=== PATIENT | female | born 1930 | race Caucasian/White ===

== ENCOUNTER 2016-06-11 14:45 | Emergency (ER) | payer MEDICARE, MEDICAID ==
[~2016-06-11] VITALS: Ht 170.2 cm; Wt 67.0 kg
[~2016-06-11 14:45] MED LIST: HYG25 PO; LACT1CAP44 PO; LISI-567 PO; MAGN800O PO; METO100T3 PO; NA P133E23 RC; OXYC1TAB24 PO; POLY17PO6 PO; SENN-133 PO; TOLT2TAB5 PO; TORS20TA3 PO; WARF5TAB7 PO
[2016-06-11 14:47] VITALS: BP 181/93; PULSE 82; RESP 20; O2SAT 95
[2016-06-11 15:06] VITALS: BP 175/59; PULSE 60; RESP 16; O2SAT 100
--- NOTE | 2016-06-11 15:16 | ED.REPORT ---
HPI-Chest Pain 40 and Over Date of Service Jun 11, 2016 ED Provider: Tariq Kwan DO Patient is an 85 year old female on Warfarin who presents to the ED from Urgent Care to have her pacemaker checked due to SOB that has been worsening this week. Associated symptoms include palpitations, lower extremity edema, and increased frequency of urination with some possible hematuria. She denies fever , cough, vomiting, diarrhea, abdominal pain, or any other symptoms. She had chest pains a few nights ago so she took aspirin and it resolved. Took last antibiotic today for bladder infection (urologist is Dr. Wei) She has an appointment with Dr. Hernandez in a month and a half. She last had her pacemaker checked one month ago. Nursing Notes Stated Complaint: SOB Chief Complaint: Dysrhythmia/Cardiac Nursing Notes Reviewed: Yes Allergies: Coded Allergies: atorvastatin (Verified Allergy, Severe, MUSCLE ACHES, 03/04/15) lovastatin (Verified Allergy, Severe, MUSCLE ACHES, 03/04/15) iodine (Verified Allergy, Mild, STATES BLISTERS INITIALLY THOUGHT TO BE TAPE, 03/04/15) amoxicillin (Verified Allergy, Unknown, 03/04/15) cefuroxime (Verified Allergy, Unknown, 01/06/15) nitrofurantoin (Verified Adverse Reaction, Severe, weakness, 01/06/15) erythromycin ethylsuccinate (Verified Adverse Reaction, Mild, GI UPSET, 01/06/15) sulindac (Verified Adverse Reaction, Mild, GI UPSET, 01/06/15) Uncoded Allergies: TAPE (Allergy, Mild, when in comb with iodine, blisters, 02/01/11) Scheduled Chlorthalidone (Chlorthalidone) 25 Mg Tablet 25 MG PO DAILY Lactobacillus Acidophilus (Acidophilus Lactobacillus) 1 Each Capsule 2 EACH PO BIDWM Lisinopril (Lisinopril) 20 Mg Tablet 40 MG PO DAILY Metoprolol Tartrate (Metoprolol Tartrate) 100 Mg Tablet 150 MG PO BID Tolterodine Tartrate (Tolterodine Tartrate) 2 Mg Tablet 2 MG PO DAILY Torsemide (Torsemide) 20 Mg Tablet 10 MG PO DAILY Warfarin Sodium (Warfarin Sodium) 5 Mg Tablet 5 MG PO DAILY Take 5mg daily on Monday, Monday, Monday, and Monday. Warfarin Sodium (Warfarin Sodium) 5 Mg Tablet 2.5 MG PO DAILY Take 2.5mg (half of a 5mg tablet) on Monday, , and Monday. Scheduled PRN Magnesium Hydroxide (Milk of Magnesia) 10 Ml Conc 10 ML PO HS PRN PRN For Bowel Movement Na Phos,M-B/Na Phos,Di-Ba (Fleet Enema) 133 Ml Enema 133 ML RC DAILY PRN PRN For Constipation Polyethylene Glycol 3350 (Miralax) 17 Gm Powd.pack 17 GM PO DAILY PRN PRN For Constipation Sennosides (Senna) 8.6 Mg Tablet 17.2 MG PO BID PRN PRN For Constipation oxyCODONE-Acetaminophen 5-325 mg (oxyCODONE-Acetaminophen 5-325 mg) 1 Each Tablet 1-2 TAB PO Q4H PRN PRN For Pain General Time Seen by MD: 15:14 Chief Complaint Shortness of breath Hx Obtained From: Patient, Spouse Arrived By: Walk-in Sudden in Onset?: Yes Onset Occurred: 1 week ago Symptom Duration: Since onset Past Medical History Past Medical History Notes: Chronic atrial fibrillation Chronic anticoagulation, on coumadin History of ventricular tachycardia s/p AV node ablation s/p dual chamber permanent pacemaker (VVIR mode) Hypertension Chronic obstructive pulmonary disease Pulmonary hypertension Hypercholesterolemia Gastroesophageal reflux disease Recurrent urinary tract infections Past Medical History Chronic urinary tract infections, pulmonary hypertension, chronic atrial fibrillation on warfarin Osteoporosis Reports: COPD, Congestive heart failure, Hypertension Past Surgical History AV trung ablation and pacemaker implant Two hip replacements cystocele and retrocele repair Family History Reviewed noncontributory Smoking History Former Smoker Social History Alcohol Use: Denies alcohol use Drug Use: Denies drug use Other Social History: Lives alone, Local resident Ambulatory Status Independent Review of Systems Constitutional: Denies: Fever Respiratory: Reports: Shortness of breath, Denies: Non-productive cough Cardiovascular: Reports: Edema, Palpitations GI: Denies: Abdominal pain, Diarrhea, Vomiting Complete sys rev & neg: except as marked. Female: Reports: Hematuria, Urinary frequency Physical Exam Initial Vital Signs Vital Signs (First) Date Time Temp Pulse Resp B/P Pulse Ox O2 Delivery O2 Flow Rate FiO2 06/11/16 14:47 36.6 82 20 181/93 95 Room Air Initial VS: Reviewed Head / Eyes: Atraumatic, Normocephalic Skin: Warm, Dry Neurologic: Alert, Oriented, Nonfocal Psychiatric: Mood/affect normal, Behavior normal, Normal thought content General/Constitutional: Awake, Alert, Well developed Respiratory / Chest: No respiratory distress Faint rhales Cardiovascular: Heart rate NL Lower Ext Edema: Positive: Non-Pitting Abdomen: Soft, Non-tender Neck Vascular: Positive: JVD mild Interpretation & Diagnostics Lab Results Interpretation Result Diagram: 06/11/16 1541 06/11/16 1541 Test 06/11/16 15:41 06/11/16 15:45 White Blood Count 6.9th/mm3 (3.8-10.1) Red Blood Count 4.19mil/mm3 (3.90-5.20) Hemoglobin 12.8g/dL (12.0-15.6) Hematocrit 40.3% (35.0-46.0) Mean Corpuscular Volume 96.2fL (81-100) Mean Corpuscular Hemoglobin 30.5pg (27.0-35.0) Mean Corpuscular Hemoglobin Concent 31.8% (32.0-37.0) Red Cell Distribution Width 14.5% (12.3-15.4) Platelet Count 114bil/L (150-400) Neutrophils (%) (Auto) 79.0% (40-74) Lymphocytes (%) (Auto) 10.9% (14-46) Monocytes (%) (Auto) 9.0% (4-12) Eosinophils (%) (Auto) 0.9% (0-5) Basophils (%) (Auto) 0.1% (0-3) Prothrombin Time 17.7sec (8.1-12.5) Prothromb Time International Ratio 1.64ratio Sodium Level 144mEq/L (134-144) Potassium Level 4.5mEq/L (3.5-5.2) Chloride Level 105mEq/L (97-108) Carbon Dioxide Level 27mmol/L (18-29) Blood Urea Nitrogen 25mg/dL (8-27) Creatinine 1.34mg/dL (0.57-1.00) Estimat Glomerular Filtration Rate 54mL/min (>59) Glucose Level 92mg/dL (60-99) Calcium Level 9.1mg/dL (8.5-10.1) Magnesium Level 2.0mg/dL (1.6-2.6) Total Bilirubin 0.7mg/dL (0.0-1.2) Aspartate Amino Transf (AST/SGOT) 27U/L (0-50) Alanine Aminotransferase (ALT/SGPT) 16U/L (0-32) Alkaline Phosphatase 51U/L (25-165) Troponin T < 0.010ug/L (0.0-0.011) Pro-B-Type Natriuretic Peptide 8267pg/mL (0-738) Total Protein 6.4g/dL (6.4-8.4) Albumin 3.9g/dL (3.4-5.0) Hold Urine Received (Received) ECG Interpretation ECG Interpretation: ventricular-paced rhythm rate 60 Time: 16:23 Interpreted by: ED physician X-Ray Chest Interpretation Chest Xray Interpretation: IMPRESSION: New bilateral pleural effusions suspicious for fluid overload. Cardiomegaly, as before. Dictated by: Destinee Connell M.D. on 06/11/2016 at 15:54 Approved by: Destinee Connell M.D. on 06/11/2016 at 15:55 View: Portable, 1 view Interpretation / Wet Read by: Interpret - Radiologist Re-Eval/Medical Decision Med Decision/Clinical Course Patient presents in fluid overload from congestive heart failure, this is likely to stop her diuretic medications approximately 2 months ago. Pacemaker does not show any aberrancies or runs of ventricular tachycardia however while in the ER she had a run of beats of nonsustained ventricular tachycardia. On questioning she was asymptomatic of this. Her labs are consistent with congestive heart failure next suspect infection, her urinalysis is negative for acute urinary tract infection. The patient is insistent and adamant that she go home. I did contact cardiology and we have discussed the discharge plan. It should be noted that we had a lengthy discussion with the patient and her family member in the room regarding the fact that she had ventricular tachycardia and that sustained could lead to either syncope or cardiac arrest. Her response to this with that she still wished to go home. She seems capable of making her own life decisions and it seems reasonable in this case to let her go home. We will start amlodipine 10 mg and torsemide 10 mg and have her follow-up with cardiology within 1 week. Time of Eval: 17:21 Re-Evaluation/Progress Note: rechecked patient. She didn't know she had a run of unsustained vt. Patient is requesting to go home. Consultation : Referral / Consult Name: Tish Meraz MD Consulted With: Cardiology Call Returned at: 17:55 Note: Discussed patient's case. Give 20 mg furosemide IV again, then start torsemide 10 mg daily and amlodipine 10 mg daily Counseled Regarding: Diagnosis, Lab results, Need for follow-up, When/why to return to ED Discharge & Departure Primary Impression: CHF (congestive heart failure) Additional Impression: Ventricular tachycardia, non-sustained Discharge Condition All VS Reviewed: Yes Condition: Stable Patient Instructions: Congestive Heart Failure (ED) Additional Instructions: Your labs are consistent with congestive heart failure. Begin taking amlodipine 10 mg daily and torsemide 10 mg daily in order to better control your blood pressure and remove extra fluids. Call cardiology Monday morning for an appointment sometime this week. Return to ER if you develop severe shortness of breath, chest pain, or any other concerns. Referrals: Linda Vasques (PCP) Scribe Attestation Portions of this note were transcribed by Kaleb Irene. I, Dr. Kwan personally performed the history, physical exam and medical decision-making; I reviewed and confirmed the accuracy of the information in the transcribed note. Signed by: Kaleb Irene 06/11/16, 8712 copies to: Linda Vasques Timothy S DO Jun 11, 2016 15:16 KALEB IRENE Jun 11, 2016 15:28
[2016-06-11 15:54] LABS: BASOPHILS % (AUTO) 0.1 % (0-3); EOSINOPHILS % (AUTO) 0.9 % (0-5); Mean Corpuscular Hemoglobin 30.5 pg (27.0-35.0); Mean Corpuscular Volume 96.2 fL (81-100); Platelet Count 114 bil/L (150-400)
--- NOTE | 2016-06-11 15:56 | DRSVH ---
PROCEDURE: X-RAY CHEST ONE VIEW, PORTABLE ([id number]) INDICATIONS: dyspnea on exertion TECHNIQUE: One view of the chest was acquired. COMPARISON: [facility], CR, XR CHEST 1VW (PORTABLE), 03/30/2016, 21:10. FINDINGS: Surgical changes and devices: Dual-lead cardiac pacer is unchanged. Lungs and pleura: There are small bilateral pleural effusions which are new when compared with the [facility] dated 03/30/16. The lung volumes are large and the diaphragms are flattened suggesting emphysema. Mediastinum: Mediastinal contours appear normal. Heart size is enlarged, as before. Bones and chest wall: No suspicious bony lesions. Overlying soft tissues appear unremarkable. IMPRESSION: New bilateral pleural effusions suspicious for fluid overload. Cardiomegaly, as before. Dictated by: Destinee Connell M.D. on 06/11/2016 at 15:54 Approved by: Destinee Connell M.D. on 06/11/2016 at 15:55
[2016-06-11 16:09] LABS: INR 1.64 ratio
[2016-06-11 16:55] LABS: TROPONIN T < 0.010 ug/L (0.0-0.011)
[2016-06-11] MEDS ORDERED: Furosemide 10 mg/mL 2 mL Inj IVPUSH ONE ×2 (17:00→18:15)
[2016-06-11 17:25] VITALS: BP 174/61; PULSE 60; RESP 12; O2SAT 100
[2016-06-11] MEDS ORDERED: TORS10TA5 PO (18:16)
[2016-06-11] MEDS ORDERED: AMLO10TA3 PO (18:16)
[2016-06-11 18:41] VITALS: BP 171/75; PULSE 59; O2SAT 96
== END 2016-06-11 18:43 ==
LOC: SED 14:45
DX: I27.2 Other secondary pulmonary hypertension (principal); I50.9 Heart failure, unspecified; I47.2 Ventricular tachycardia; I25.10 Atherosclerotic heart disease of native coronary artery without angina pectoris; K21.9 Gastro-esophageal reflux disease without esophagitis; Z87.440 Personal history of urinary (tract) infections; Z87.891 Personal history of nicotine dependence; Z79.01 Long term (current) use of anticoagulants; Z88.1 Allergy status to other antibiotic agents; Z88.8 Allergy status to other drugs, medicaments and biological substances
CPT/HCPCS: 36415; 71010; 80053; 83735; 83880; 84484; 85025; 85610; 93005; 96374; 96375; 99285; G0463; J1940

== ENCOUNTER 2016-09-28 12:03 | Inpatient (IN) | payer MEDICARE, MEDICAID ==
[~2016-09-28] VITALS: Ht 170.2 cm; Wt 63.6 kg
[2016-09-28 12:03] VITALS: BP 166/67; PULSE 61; RESP 20; O2SAT 98
[~2016-09-28 12:03] MED LIST changes: +AMLO10TA3 PO; +TORS10TA5 PO
--- NOTE | 2016-09-28 13:15 | DRSVH ---
PROCEDURE: X-RAY PELVIS W/LAT HIP (LT) ([id number]) INDICATIONS: pain TECHNIQUE: AP pelvis with lateral view(s) of the left hip(s). COMPARISON: [facility], CT, CT ABD PELVIS WO CON, 03/05/2015, 12:24. FINDINGS: Bones: No fractures or dislocations. Prior bilateral hip arthroplasties. Pelvic ring appears intac t. No suspicious bony lesions. Soft tissues: The visualized bowel gas pattern is normal. No suspicious soft tissue calcifications. Uterine fibroid calcifications to right of midline low pelvis. Aortoiliac endostent placement IMPRESSION: No trauma found. Postsurgical changes as discussed, uterine fibroid calcifications. Dictated by: Cali Avila M.D. on 09/28/2016 at 13:11 Approved by: Cali Avila M.D. on 09/28/2016 at 13:13
--- NOTE | 2016-09-28 14:35 | ED.REPORT ---
HPI-Extremity Problem Lower Date of Service September 28, 2016 ED Provider: Henri Keys PA-C Courtney is a 85-year-old female with history of bilateral hip replacement, A. fib, pacemaker, hypertension presenting with chief complaint of left hip pain. Patient reports that she lost her balance and reached out for a chair, which turned out to be broken. This chair collapsed and she fell to the ground, striking the coffee table. He merely felt left hip pain and fell unable to stand. Denies striking her head, losing consciousness. Denies that the fall was preceded by a sense of presyncope, syncope, chest pain, shortness of breath. Patient reports she has a 40 year history of "bad equilibrium," and a similar fall previously. This has been investigated previously without any etiology determined. Denies numbness in the leg. Nursing Notes Stated Complaint: RIGHT HIP PAIN Chief Complaint: Multiple Trauma/Fall Nursing Notes Reviewed: Yes Allergies: Coded Allergies: atorvastatin (Verified Allergy, Severe, MUSCLE ACHES, 03/04/15) lovastatin (Verified Allergy, Severe, MUSCLE ACHES, 03/04/15) iodine (Verified Allergy, Mild, STATES BLISTERS INITIALLY THOUGHT TO BE TAPE, 03/04/15) amoxicillin (Verified Allergy, Unknown, 03/04/15) cefuroxime (Verified Allergy, Unknown, 01/06/15) nitrofurantoin (Verified Adverse Reaction, Severe, weakness, 01/06/15) erythromycin ethylsuccinate (Verified Adverse Reaction, Mild, GI UPSET, 01/06/15) sulindac (Verified Adverse Reaction, Mild, GI UPSET, 01/06/15) Uncoded Allergies: TAPE (Allergy, Mild, when in comb with iodine, blisters, 02/01/11) Scheduled Amlodipine (Amlodipine) 10 Mg Tablet 10 MG PO DAILY Chlorthalidone (Chlorthalidone) 25 Mg Tablet 25 MG PO DAILY Lactobacillus Acidophilus (Acidophilus Lactobacillus) 1 Each Capsule 2 EACH PO BIDWM Lisinopril (Lisinopril) 20 Mg Tablet 40 MG PO DAILY Metoprolol Tartrate (Metoprolol Tartrate) 100 Mg Tablet 150 MG PO BID Tolterodine Tartrate (Tolterodine Tartrate) 2 Mg Tablet 2 MG PO DAILY Torsemide (Torsemide) 20 Mg Tablet 10 MG PO DAILY Torsemide (Torsemide) 10 Mg Tablet 10 MG PO DAILY Warfarin Sodium (Warfarin Sodium) 5 Mg Tablet 5 MG PO DAILY Take 5mg daily on Monday, Monday, Monday, and Monday. Warfarin Sodium (Warfarin Sodium) 5 Mg Tablet 2.5 MG PO DAILY Take 2.5mg (half of a 5mg tablet) on Monday, , and Monday. Scheduled PRN Magnesium Hydroxide (Milk of Magnesia) 10 Ml Conc 10 ML PO HS PRN PRN For Bowel Movement Na Phos,M-B/Na Phos,Di-Ba (Fleet Enema) 133 Ml Enema 133 ML RC DAILY PRN PRN For Constipation Polyethylene Glycol 3350 (Miralax) 17 Gm Powd.pack 17 GM PO DAILY PRN PRN For Constipation Sennosides (Senna) 8.6 Mg Tablet 17.2 MG PO BID PRN PRN For Constipation oxyCODONE-Acetaminophen 5-325 mg (oxyCODONE-Acetaminophen 5-325 mg) 1 Each Tablet 1-2 TAB PO Q4H PRN PRN For Pain General Time Seen by MD: 14:33 Chief Complaint Hip injury left Past Medical History Past Medical History Notes: Chronic atrial fibrillation Chronic anticoagulation, on coumadin History of ventricular tachycardia s/p AV node ablation s/p dual chamber permanent pacemaker (VVIR mode) Hypertension Chronic obstructive pulmonary disease Pulmonary hypertension Hypercholesterolemia Gastroesophageal reflux disease Recurrent urinary tract infections Past Medical History Chronic urinary tract infections, pulmonary hypertension, chronic atrial fibrillation on warfarin Osteoporosis Reports: COPD, Congestive heart failure, Hypertension Past Surgical History AV trung ablation and pacemaker implant Two hip replacements cystocele and retrocele repair Family History Reviewed noncontributory Smoking History Former Smoker Social History Alcohol Use: Denies alcohol use Drug Use: Denies drug use Other Social History: Lives alone, Local resident Ambulatory Status Independent Review of Systems General: Denies fever, chills, malaise. HEENT: Denies congestion, headache, sore throat. Respiratory: Denies dyspnea, cough, shortness of breath, wheezing. Cardiovascular: Denies chest pain, palpitations. Gastrointestinal: Denies vomiting, diarrhea, abdominal pain. Genitourinary: Denies frequency, urgency, dysuria, hematuria. Otherwise as noted in HPI. Physical Exam General: Well appearing, well developed, well nourished, no acute distress. Left Hip: Normal to inspection, diffusely tender. Limited range of motion Left Knee: Normal to inspection, nontender, full range of motion. Legs: [place] edema bilaterally. DP and PT pulses not appreciated. Feet pink warm and dry with brisk capillary refill. Head: Atraumatic, normocephalic. Eyes: No scleral icterus or injection. No discharge. Vision grossly intact. ENT: Voice clear, hearing grossly intact. Respiratory: Regular rate and rhythm. Breath sounds present, clear to auscultation and equal bilaterally. No respiratory distress. No increased work of breathing, speaks in complete sentences. Cardiovascular: Regular rate and rhythm, without murmur, gallop or rub. No pedal edema. Gastrointestinal: Abdomen flat and non-tender without guarding or rebound. Bowel sounds normoactive. Skin: Warm and dry. Neurological: Grossly nonfocal. Psychological: Alert and oriented. Speech appropriate, linear and logical. Behavior appropriate. Initial Vital Signs Vital Signs (First) Date Time Temp Pulse Resp B/P Pulse Ox O2 Delivery O2 Flow Rate FiO2 09/28/16 12:03 36.4 61 20 166/67 98 Room Air Initial VS: Vital signs normal (elevated blood pressure) Interpretation & Diagnostics Lab Results Interpretation Result Diagram: 09/28/16 1300 09/28/16 1300 Test 09/28/16 13:00 White Blood Count 7.4th/mm3 (3.8-10.1) Red Blood Count 4.51mil/mm3 (3.90-5.20) Hemoglobin 13.6g/dL (12.0-15.6) Hematocrit 42.7% (35.0-46.0) Mean Corpuscular Volume 94.7fL (81-100) Mean Corpuscular Hemoglobin 30.2pg (27.0-35.0) Mean Corpuscular Hemoglobin Concent 31.9% (32.0-37.0) Red Cell Distribution Width 14.9% (12.3-15.4) Platelet Count 129bil/L (150-400) Neutrophils (%) (Auto) 74.1% (40-74) Lymphocytes (%) (Auto) 14.3% (14-46) Monocytes (%) (Auto) 9.4% (4-12) Eosinophils (%) (Auto) 1.5% (0-5) Basophils (%) (Auto) 0.3% (0-3) Hold Purple Top Tube Received (Received) Prothrombin Time 15.4sec (8.1-12.5) Prothromb Time International Ratio 1.43ratio Activated Partial Thromboplast Time 32.1sec (22.8-33.0) Hold Blue Top Tube Received (Received) Sodium Level 143mEq/L (134-144) Potassium Level 4.6mEq/L (3.5-5.2) Chloride Level 104mEq/L (97-108) Carbon Dioxide Level 25mmol/L (18-29) Blood Urea Nitrogen 31mg/dL (8-27) Creatinine 1.76mg/dL (0.57-1.00) Estimat Glomerular Filtration Rate 39mL/min (>59) Glucose Level 91mg/dL (60-99) Calcium Level 10.2mg/dL (8.5-10.1) Total Bilirubin 0.9mg/dL (0.0-1.2) Aspartate Amino Transf (AST/SGOT) 31U/L (0-50) Alanine Aminotransferase (ALT/SGPT) 17U/L (0-32) Alkaline Phosphatase 59U/L (25-165) Total Protein 7.2g/dL (6.4-8.4) Albumin 4.0g/dL (3.4-5.0) Hold Red Top Tube Received (Received) Hold [place] Top Tube Received (Received) X-Ray Interpretation Xray Interpretation: PROCEDURE: X-RAY PELVIS W/LAT HIP (LT) ([id number]) INDICATIONS: pain FINDINGS: Bones: No fractures or dislocations. Prior bilateral hip arthroplasties. Pelvic ring appears intact. No suspicious bony lesions. IMPRESSION: No trauma found. Postsurgical changes as discussed, uterine fibroid calcifications. Interpretation / Wet Read by: Interpret - Radiologist Re-Eval/Medical Decision Med Decision/Clinical Course A 5-year-old female with this history of bilateral total hip duraplasty, A. fib and implanted pacemaker presents with chief complaint of left hip pain after a fall. The patient reports feeling unsteady, grasping for a chair that collapsed causing her to fall to ground. No indication of head or neck trauma. Patient reports long history of "poor equilibrium" I do not find this unusual event. History does not suggest a syncopal event. Exam reveals well perfused leg, good sensation, tender hip. X-rays are normal. This plan with the patient is stable and safe to be discharged, low concern for a cardiac, respiratory or neurological event. However the patient has a great deal of pain is unable to get out of bed. She lives by herself in an apartment that is not wheelchair accessible. Patient failed physical therapy evaluation. States she is not able to return to home in this condition. Discussed the case with social work, and were unable to find options other than admission for observation and pain control. Discussed the case with hospitalist, who accepts admission. Consultation : Referral / Consult Name: Vin Santiago MD Call Returned at: 17:20 Remotely Piloted Vehicle Controller: Accepts admit Discharge & Departure Impression: Primary Impression: Contusion of left hip Encounter type: initial encounter Qualified Code: S70.02XA - Contusion of left hip, initial encounter Disposition: ADMITTED TO HOSPITAL Referrals: Linda Vasques (PCP) Henri Keys PA-C September 28, 2016 14:35
[2016-09-28 14:48] VITALS: BP 122/63; PULSE 60; RESP 20; O2SAT 95
--- NOTE | 2016-09-28 16:00 | NUR ---
Evaluation completed. Please go to "Notes" then click on "Assessments and Notes" (bottom left corner of screen). Then select appropriate discipline tab on top of screen.
--- NOTE | 2016-09-28 16:20 | NUR ---
Admit Pt admitted to floor. Pt transferred to bed via slide board. Pt c/o severe left hip pain with transfer. No pain when she is not moving. A&Ox3. RT called re: stat ECG and labs called re: stat labs. Tele will be obtained and placed on pt. Admission will be completed by oncoming shift. Bed locked in low position and call light within reach. Will continue to monitor.
[2016-09-28 16:46] VITALS: BP 160/69; PULSE 60; O2SAT 99
[2016-09-28 16:50] LABS: BASOPHILS % (AUTO) 0.3 % (0-3); EOSINOPHILS % (AUTO) 1.5 % (0-5); MONOCYTES % (AUTO) 9.4 % (4-12); Mean Corpuscular Hemoglobin 30.2 pg (27.0-35.0); Mean Corpuscular Volume 94.7 fL (81-100); NEUTROPHILS % (AUTO) 74.1 % (40-74); Platelet Count 129 bil/L (150-400)
[2016-09-28] MEDS ORDERED: Ondansetron 2 mg/mL 2 mL Inj IVPUSH PRN (17:55)
[2016-09-28 18:07] VITALS: BP 160/69; PULSE 60; RESP 20; O2SAT 99
[2016-09-28 18:34] VITALS: BP 162/72; PULSE 60; RESP 16; O2SAT 98
[2016-09-28 18:36] LABS: INR 1.43 ratio
[2016-09-28 20:28] LABS: APPEARANCE,URINE HAZY (CLEAR,HAZY); COLOR,URINE YELLOW (YELLOW); OCCULT BLOOD,URINE NEGATIVE (NEGATIVE); UROBILINOGEN,URINE NORMAL (NORMAL)
[2016-09-28] MEDS: Heparin 5,000 Unit/mL Inj SUBQ SCH ×2 (20:28→20:30)
--- NOTE | 2016-09-28 20:30 | PCM.HPMED ---
Subjective Date of Service September 28, 2016 Primary Provider: Admitting Physician: Vin Santiago MD Primary Care Physician: Linda Vasques Attending Physician: Vin Santiago MD Chief Complaint: s/p fall History of Present Illness: 85yo F w/ extensive PMH including chronic afib s/p AV ablation, dual chamber permanent pacemaker anticoagulated with Coumadin, History of ventricular tachycardia., COPD, HTN, HLD, CKD, chronic gait instability, GERD, urinary incontinence with urgency p/w ground level fall. pt reportedly lost balance and reached out to 3leg chair, but it was collapsed so pt landed on the ground, hit coffee table. denied LOC, Patient is poor historian, was not able to explain how she felt exactly at the time of fall, patient stated that she has a equilibrium problem for long time, experienced similar "feeling" every day, regardless of situation, eating or moving or walking, episode is usually mild and everytime it happened, pt had to hang onto something so that she doesn't fall. Today, it was similar to her regular "equilibrium"problem but was not able to rely on something. pt denied particular dizziness but felt that she was unsteady, denied chest pain, sob, palpitation, blurry vision prior to fall. pt is eating okay with good appetite, living alone independently. Pt thought it might be from her taking Codeine for regular pain, but was unclear. pt thinks she took codeine this morning. Pt denied fever, chills. n/v/d, rather constipated, last BM yesterday, has baseline urinary incontinence, taking meds. denied chest pain or palpitation, tinnitus a/w with fall. ED. VS BP 160s, 61, 20, 98% on RA, hip/pelvic xray negative for fx. labs showed CKD, INR1.43, otherwise unremarkable. pt was assessed by PT in ED, was not a condition to go home, recommended admission. Review of Systems: Pertinent positives as noted in history of present illness. All other systems were reviewed and are negative Allergies Coded Allergies: atorvastatin (Verified Allergy, Severe, MUSCLE ACHES, 03/04/15) lovastatin (Verified Allergy, Severe, MUSCLE ACHES, 03/04/15) iodine (Verified Allergy, Mild, STATES BLISTERS INITIALLY THOUGHT TO BE TAPE, 03/04/15) amoxicillin (Verified Allergy, Unknown, 03/04/15) cefuroxime (Verified Allergy, Unknown, 01/06/15) nitrofurantoin (Verified Adverse Reaction, Severe, weakness, 01/06/15) erythromycin ethylsuccinate (Verified Adverse Reaction, Mild, GI UPSET, 01/06/15) sulindac (Verified Adverse Reaction, Mild, GI UPSET, 01/06/15) Uncoded Allergies: TAPE (Allergy, Mild, when in comb with iodine, blisters, 02/01/11) Home Medications will verify later with med rec/EHR, pt cannot recall names PMH PMH Chronic atrial fibrillation s/p AV ablation and dual chamber permanent pacemaker anticoagulated with Coumadin. History of ventricular tachycardia. Nicotine dependence in remission. Abdominal aortic aneurysm, status post aortic stent graft placement for 5.9 cm abdominal aortic aneurysm (2012) Pulmonary hypertension. Chronic obstructive pulmonary disease. Hypertension. Somewhat chronic thrombocytopenia Chronic kidney disease stage III Hypertensive cardiac disease Moderate MR Moderate to severe TR GERD. Hyperlipidemia. Recurrent urinary tract infections, h/o ESBL E. coli. Urinary incontinence with urgency Gait instability, walker at baseline, history of frequent falls Traumatic compression fracture of T9 Gastroesophageal reflux disease. Cholelithiasis. Colonic diverticulosis. Calcified uterine fibroid by CT on 01/25/14. Surgical History AV trung ablation and pacemaker implant. B/l Total Hip Replacement. Cystocele and Retrocele repair. AAA repair (2012). Family History Mother with equilibrium issues. Social History Hx Alcohol Use: Yes (occasionally "not when on codiene") Hx Substance Use: No Hx Tobacco Use: No Smoking Status: Former Smoker Exam Vital Signs Vital Sign - Last Date Time Temp Pulse Resp B/P Pulse Ox O2 Delivery O2 Flow Rate FiO2 09/28/16 18:07 60 20 160/69 99 Room Air 09/28/16 12:03 36.4 Exam Overall pt was bit confused, not able to answer questions correctly. AAOx2, responded slowly. no JVD, MMM, no LAD RRR, nl s1, s2 no mrg CTAB, no w,c S,ND,NT,normoactive BS+ warm, no edema, pulses 2/2 intermittent spasm, tenderness on Left hip Lab and Diagnostics Result Diagram: 09/28/16 1300 09/28/16 1300 X-Rays, CTs and MRIs PROCEDURE: X-RAY PELVIS W/LAT HIP (LT) ([id number]) INDICATIONS: pain TECHNIQUE: AP pelvis with lateral view(s) of the left hip(s). COMPARISON: [facility], CT, CT ABD PELVIS WO CON, 03/05/2015, 12: 24. FINDINGS: Bones: No fractures or dislocations. Prior bilateral hip arthroplasties. Pelvic ring appears intact. No suspicious bony lesions. Soft tissues: The visualized bowel gas pattern is normal. No suspicious soft tissue calcifications. Uterine fibroid calcifications to right of midline low pelvis. Aortoiliac endostent placement IMPRESSION: No trauma found. Postsurgical changes as discussed, uterine fibroid calcifications. Dictated by: Cali Avila M.D. on 09/28/2016 at 13:11 Approved by: Cali Avila M.D. on 09/28/2016 at 13:13 Assessment & Plan Acute, active ground level fall, POA, unlikely mechanical, likely due to underlying "disequilibrium" as pt described, given her age. pt doesn't appear to be dry. labs were unremarkable. had PPM checked 2wks ago, no EKG found in ED -telemetry, will get EKG -continue PT -tramadol, tylenol, flexeril prn, will avoid heavy opioid given hx suggested that fall might be induced from codeine she took -will consider stroke w/u CT, MR stroke protocol if any focal deficit noted -UA, UCX -orthostatic v/s Chronic, stable # Chronic atrial fibrillation s/p AV ablation and dual chamber permanent pacemaker anticoagulated with Coumadin -continue outpatient warfarin to be dosed by pharmacy # Hypertension, mildly hypertensive, resume home med #Abdominal aortic aneurysm, status post aortic stent graft placement for 5.9 cm abdominal aortic aneurysm (2012), stable #Pulmonary hypertension, Chronic obstructive pulmonary disease, continue home inhaler #chronic thrombocytopenia, stable, #Chronic kidney disease stage III, stable #GERD, PPI prn #Hyperlipidemia. continue statin #Urinary incontinence with urgency, continue oxybutynin #Traumatic compression fracture of T9 and chronic back pain, will try to avoid opioid for now Cholelithiasis. Colonic diverticulosis. Dispo: Patient is admitted under observation status with expectation that she will be discharged within 24-48 hours, diet:general dvt ppx:systemic AC DNR/DNI Time spent 65min Vin Santiago MD September 28, 2016 18:22
--- NOTE | 2016-09-28 21:16 | NUR ---
ED EXECUTIVE CYBER LEADER note: D/A: Pt presents to the ED after a ground level fall with subsequent hip pain. NO acute injury identified by ED PA, however significant pain has limited her mobility and she is essentially unable to even transfer to commode. PT evaluated pt however she again was unable to even get to bedside to inadequately controlled pain. EXECUTIVE CYBER LEADER met with pt and her family at bedside to discuss options for home health versus observation admission for pain control and re-assessment. Pt has 3 steps into home and no assistance in the home. Pt has kiln worker in the home 5 hours per day, however they do not provide physical or nursing care. As pt cannot ambulate even to transfer to commode it does not appear feasible or safe to discharge pt home with home health and pt is uncomfortable with that decision. EXECUTIVE CYBER LEADER staffed pt with ED PA and decision was made to admit pt for pain control. P: Pt to be admitted for pain control. Pt has chore workers in the home but no additional assistance. Pt family is supportive however unable to manage pt due to her high levels of pain. EXECUTIVE CYBER LEADER to meet with pt to continue to identify discharge needs as her care progresses. Mirta Romano
--- NOTE | 2016-09-28 21:46 | PCM.PHAPRO ---
Progress Date of Service: September 28, 2016 s/p fall Warfarin Management per Pharmacy: Indication: Stroke prophylaxis as patient has atrial fibrillation ([id number]- Vasc = 4) Goal INR: 2-3 Home Dose: 2.5 mg on and 5 mg all other days Age: 85 yo F Labs: Hgb/Hct: 13.6/42.7 Plt: 129 INR: 1.43 Recommendation: Give 2 mg PO x 1 tonight (total of 7 mg today as patient took home dose of 5 mg in AM) Thank You, Maite Negron, Pharm D. Maite Negron September 28, 2016 21:46
[2016-09-28 21:50] VITALS: BP 127/72; PULSE 56; RESP 16; O2SAT 93
[2016-09-28] MEDS ORDERED: OMEP20CA11 PO (22:25)
[2016-09-28] MEDS ORDERED: ALBU8.5H2 INHALATION (22:25)
[2016-09-28] MEDS ORDERED: SENN-133 PO (22:25)
[2016-09-28] MEDS ORDERED: CRAN PO (22:25)
[2016-09-28] MEDS ORDERED: TOLT2CAP8 PO (22:25)
[2016-09-28] MEDS ORDERED: MAGN400O4 PO (22:25)
[2016-09-28] MEDS ORDERED: IPRA15SP NS (22:25)
[2016-09-28] MEDS ORDERED: DENO60DI SQ (22:27)
[2016-09-28] MEDS ORDERED: CYA1000I IM (22:27)
[2016-09-28] MEDS ORDERED: DEXT1DRO8 BOTH_EYES (22:27)
[2016-09-28] MEDS ORDERED: NAPR250T PO (22:27)
[2016-09-29] VITALS (10 sets, daily range): BP systolic 143–168; BP diastolic 60–80; PULSE 60–65; RESP 14–24; O2SAT 95–100
--- NOTE | 2016-09-29 03:48 | NUR ---
JOSE Pt admitted with JOSE score of 3. Put on cpox. Noted before oxygen placed, pt would drop as low as 78% momentarily, but mostly O2 hung out between 85-91%. 2L NC placed on pt, O2 goal of 88-92% per h/o COPD. Continuing care.
[2016-09-29 07:31] LABS: INR 1.66 ratio
--- NOTE | 2016-09-29 09:03 | NUR ---
Case Management: DICKEY and Medicare Part D given and explained to patient at bedside at 0855. No questions at this time. Signed original placed on hard chart; copy provided to ptSILVIA Arauz RN
[2016-09-29] MEDS: Polyethylene Glycol (PEG) 17 Gm Powder PO SCH (09:31)
[2016-09-29] MEDS: Heparin 5,000 Unit/mL Inj SUBQ SCH ×2 (09:31→20:15)
--- NOTE | 2016-09-29 11:12 | PCM.PHAPRO ---
Progress s/p fall Date August 29-Sep INR 1.43 1.66 INR change 0.23 Warf Dose 7 MG(2 + 5 (HOME)) 5 Pro Mercado Pharm.D Sep 29, 2016 11:12
--- NOTE | 2016-09-29 12:28 | PCM.PNMED ---
Subjective Date of Service Sep 29, 2016 Subjective pt still very weak, slow to answers, EKG showed V-paced rhythms still has episodic spasm, pain on hip pt was gurgling with upper respiratory secretions, stated that this is typical in the morning, denied cough, sputum, SOB Exam Vital Signs Vital Sign - Last Date Time Temp Pulse Resp B/P Pulse Ox O2 Delivery O2 Flow Rate FiO2 09/29/16 10:10 36.7 60 24 144/62 96 Nasal Cannula 1.00 Intake and Output 09/28/16 09/28/16 09/29/16 Cumulative From/Thru 15:00 23:00 07:00 09/28/16 12:03 - 09/29/16 05:11 Intake Total 270 ml 270 ml Output Total 100 ml 100 ml Balance 170 ml 170 ml Intake Oral 240 ml 240 ml IV Total 30 ml 30 ml Output Urine Total 100 ml 100 ml Exam Overall pt was bit confused, not able to answer questions correctly. AAOx2, responded slowly. no JVD, MMM, no LAD RRR, nl s1, s2 no mrg CTAB, no w,c S,ND,NT,normoactive BS+ warm, no edema, pulses 2/2 intermittent spasm, tenderness on Left hip IVs and Medications Medications Reviewed: Medications were reviewed in detail Lab and Diagnostics Result Diagram: 09/28/16 1300 09/28/16 1300 X-Rays, CTs and MRIs PROCEDURE: X-RAY PELVIS W/LAT HIP (LT) ([id number]) INDICATIONS: pain TECHNIQUE: AP pelvis with lateral view(s) of the left hip(s). COMPARISON: [facility], CT, CT ABD PELVIS WO CON, 03/05/2015, 12: 24. FINDINGS: Bones: No fractures or dislocations. Prior bilateral hip arthroplasties. Pelvic ring appears intact. No suspicious bony lesions. Soft tissues: The visualized bowel gas pattern is normal. No suspicious soft tissue calcifications. Uterine fibroid calcifications to right of midline low pelvis. Aortoiliac endostent placement IMPRESSION: No trauma found. Postsurgical changes as discussed, uterine fibroid calcifications. Dictated by: Cali Avila M.D. on 09/28/2016 at 13:11 Approved by: Cali Avila M.D. on 09/28/2016 at 13:13 Assessment & Plan Acute, active ground level fall, POA, unlikely mechanical, likely due to underlying "disequilibrium" as pt described, given her age. pt doesn't appear to be dry. labs were unremarkable. had PPM checked 2wks ago, EKG showed V-paced. -continue telemetry, would not check PPM at this point. -continue PT -tramadol, tylenol, flexeril prn, will avoid heavy opioid given hx suggested that fall might be induced from codeine she took -will consider stroke w/u CTH, MR stroke protocol if any focal deficit noted -UA, UCX -orthostatic v/s Chronic, stable # Chronic atrial fibrillation s/p AV ablation and dual chamber permanent pacemaker anticoagulated with Coumadin -continue outpatient warfarin to be dosed by pharmacy # Hypertension, mildly hypertensive, resume home med #Abdominal aortic aneurysm, status post aortic stent graft placement for 5.9 cm abdominal aortic aneurysm (2012), stable #Pulmonary hypertension, Chronic obstructive pulmonary disease, continue home inhaler #chronic thrombocytopenia, stable, #Chronic kidney disease stage III, stable #GERD, PPI prn #Hyperlipidemia. continue statin #Urinary incontinence with urgency, continue oxybutynin #Traumatic compression fracture of T9 and chronic back pain, will try to avoid opioid for now Cholelithiasis. Colonic diverticulosis. Dispo:continue pain control, likely tomorrow. diet:general dvt ppx:systemic AC DNR/DNI Time spent 35min Vin Santiago MD Sep 29, 2016 12:28
--- NOTE | 2016-09-29 12:34 | NUR ---
Social Work Note - Initial Assessment Courtney Lucio is a 85 yr old admitted for hip Contusion/ pain after a fall at home. EMR reviewed: Pt has Medicare and [facility] insurance. Her PCP is Linda KIRK. SENDY is her son - paperwork in EMR. No LTC or VA benefits. See attached CM initial assessment. MEDICAL APPLIANCE MAKER met with pt - introduced D/C planning and explained SW role. Pt lives at home alone in [place]. She has inhome caregivers daily through [employer] for 5 hours per day. KIRAN Perez. MEDICAL APPLIANCE MAKER asked DRIVER'S LICENSE REVIEWING OFFICER to fax clinicals to KIRAN. She states that she hopes to go home at d/c - PT evaluation pending. She has used [facility] in the past and would like to use them again. ordered HH - MEDICAL APPLIANCE MAKER provided access to [facility] and called [facility]. MEDICAL APPLIANCE MAKER will fax preliminary info to [facility] and MD will complete F2F. Pt states that her friend will transport her home when d/c and she states she will be able to get into her home. MEDICAL APPLIANCE MAKER will continue to follow. Assessment: Pt who was admitted for observation after a fall at home - PT evaluation pending. Pt is not able to pay out of pocket for SNF - would benefit from assistance. Plan: Home with [facility] RN PT BA, KIRAN caregiver to provide transportation home. CLIFFORD Guzman Addendum: 09/29/16 at 1245 by GUILLE HALE SS Amended: Links added.
--- NOTE | 2016-09-29 14:40 | NUR ---
Faxed clinicals to [facility] CM per 1ST GRADE TEACHER
--- NOTE | 2016-09-29 18:41 | NUR ---
Somnolence Pt. was very somnolent this morning and into the afternoon. [place] she was awoken with conversation, she would be AOX3, but then sometimes zone out mid sentence and fall asleep. She was not able to independently stay awake to eat her meals. I had to encourage her several times to eat and drink. I held her scheduled toradol and cyclobenzaprine, and she perked up in the afternoon. She was able to independently eat a snack and dinner, and has been more alert.
[2016-09-30] VITALS (7 sets, daily range): BP systolic 119–193; BP diastolic 58–79; PULSE 60–69; RESP 15–20; O2SAT 92–100
--- NOTE | 2016-09-30 01:05 | NUR ---
TELE At 0045, physical science technician called to report 26 beats of vtach. Pt was asymptomatic, VSS, was up on the bedpan. Dr. Duke notified. Continuing care.
--- NOTE | 2016-09-30 04:30 | NUR ---
BP BP at 0430 was 193/77. Pt appears to be in a high amount of pain AEB grimacing, clutching, bracing, vocal complaints. Paged Dr. Duke. Awaiting reply.
[2016-09-30 06:50] LABS: INR 1.85 ratio
[2016-09-30 07:25] LABS: BASOPHILS % (AUTO) 0.2 % (0-3); EOSINOPHILS % (AUTO) 2.1 % (0-5); MONOCYTES % (AUTO) 13.7 % (4-12); Mean Corpuscular Hemoglobin 30.1 pg (27.0-35.0); Mean Corpuscular Volume 96.1 fL (81-100); NEUTROPHILS % (AUTO) 74.7 % (40-74); Platelet Count 104 bil/L (150-400)
[2016-09-30 07:36] LABS: Magnesium 1.9 mg/dL (1.6-2.6); Phosphorus 3.7 mg/dL (2.5-4.9)
[2016-09-30] MEDS: Polyethylene Glycol (PEG) 17 Gm Powder PO SCH (08:05)
[2016-09-30] MEDS: Heparin 5,000 Unit/mL Inj SUBQ SCH ×2 (08:05→20:20)
[2016-09-30] MEDS: Pantoprazole 40 mg ER24 Tablet PO SCH (08:06)
--- NOTE | 2016-09-30 09:20 | NUR ---
Elevated systolic BP 170/78, pulse 65. Dr. linda aware and no new orders received. patient is asymptomatic. Provided copy of Vtach 20 beats strips from library monitor printed per hospitalist orders. new orders cardiology consult. current Tele vpaced S64. Hospitalist aware. c/o pain hip pain, scheduled Tylenol given as ordered with effective results, patient is able to use bed castellon.
--- NOTE | 2016-09-30 10:44 | PCM.PHAPRO ---
Progress Date of Service: Sep 30, 2016 Requesting Provider: Vin Santiago MD s/p fall A. FIB A/ - Day 3 inpatient for ground level fall - 85 y/o female patient with hx of hypertension, chronic kidney disease stage III, atrial fibrillation on warfarin 2.5mg on and 5mg all other days; seemed like patient is not medication compliance day 08/29 09/29 09/30 INR 1.43 1.66 1.85 Warfarin 5mg+2mg 5mg 5mg - Heparin 5000u sq q12h - Hct/Plt: 39.2/104 - Last 24 hrs, patient is still complaining of hip pain that might explains her elevated blood pressure and Vtach; cardiology consult is ordered, however, consumed 75% - 100% meals, minimal ambulation due to pain, no sight/symptoms of bleeding/bruises. P/ - Give warfarin 5mg today and re-assess tomorrow. INR ordered until 10/03 Pharmacy will monitor daily Thank you James Graff Sep 30, 2016 10:44
--- NOTE | 2016-09-30 13:04 | PCM.PNMED ---
Subjective Date of Service Sep 30, 2016 Subjective pt was not spastic today, had episode of NSVT x2, 26beats, 7beats resumed BB from overnight consulted cardiology Exam Vital Signs Vital Sign - Last Date Time Temp Pulse Resp B/P Pulse Ox O2 Delivery O2 Flow Rate FiO2 09/30/16 11:27 37.0 65 16 119/67 92 Room Air 09/30/16 08:01 1.00 Intake and Output 09/29/16 09/29/16 09/30/16 Cumulative From/Thru 15:00 23:00 07:00 09/28/16 12:03 - 09/30/16 05:09 Intake Total 560 ml 150 ml 980 ml Output Total 600 ml 350 ml 1050 ml Balance -40 ml -200 ml -70 ml Intake Oral 540 ml 120 ml 900 ml IV Total 20 ml 30 ml 80 ml Output Urine Total 600 ml 350 ml 1050 ml # Voids 1 1 # Bowel Movements 0 0 Exam Overall pt was bit confused, not able to answer questions correctly. AAOx2, responded slowly but improved from yesterday no JVD, MMM, no LAD RRR, nl s1, s2 no mrg CTAB, no w,c S,ND,NT,normoactive BS+ warm, no edema, pulses 2/2 IVs and Medications Medications Reviewed: Medications were reviewed in detail Lab and Diagnostics Result Diagram: 09/30/16 0608 09/30/16 0608 X-Rays, CTs and MRIs PROCEDURE: X-RAY PELVIS W/LAT HIP (LT) ([id number]) INDICATIONS: pain TECHNIQUE: AP pelvis with lateral view(s) of the left hip(s). COMPARISON: [facility], CT, CT ABD PELVIS WO CON, 03/05/2015, 12: 24. FINDINGS: Bones: No fractures or dislocations. Prior bilateral hip arthroplasties. Pelvic ring appears intact. No suspicious bony lesions. Soft tissues: The visualized bowel gas pattern is normal. No suspicious soft tissue calcifications. Uterine fibroid calcifications to right of midline low pelvis. Aortoiliac endostent placement IMPRESSION: No trauma found. Postsurgical changes as discussed, uterine fibroid calcifications. Dictated by: Cali Avila M.D. on 09/28/2016 at 13:11 Approved by: Cali Avila M.D. on 09/28/2016 at 13:13 Assessment & Plan Acute, active ground level fall, POA, unlikely mechanical, initially thought to be underlying "disequilibrium" as pt described, given her age, probable ventricular arrhythmia -continue telemetry, -continue PT -tramadol, tylenol, flexeril prn, will avoid heavy opioid given hx suggested that fall might be induced from codeine she took -orthostatic v/s # Chronic atrial fibrillation s/p AV ablation and dual chamber permanent pacemaker anticoagulated with Coumadin. EKG showed V-paced. Telemetry showed multiple episode of NSVT, might be contributing her presentation, although pt was off on BB -continue outpatient warfarin to be dosed by pharmacy -appreciate , for further recs -continue home BB for now # Hypertension, uncontrolled, 170-190s, resolving with home BB Chronic, stable #Abdominal aortic aneurysm, status post aortic stent graft placement for 5.9 cm abdominal aortic aneurysm (2012), stable #Pulmonary hypertension, Chronic obstructive pulmonary disease, continue home inhaler #chronic thrombocytopenia, stable, #Chronic kidney disease stage III, stable #GERD, PPI prn #Hyperlipidemia. continue statin #Urinary incontinence with urgency, continue oxybutynin #Traumatic compression fracture of T9 and chronic back pain, will try to avoid opioid for now Cholelithiasis. Colonic diverticulosis. Dispo:pending given cardiac eval diet:general dvt ppx:systemic AC, keep HSQ until INR>2 DNR/DNI Time spent 35min Vin Santiago MD Sep 30, 2016 13:04
--- NOTE | 2016-09-30 15:05 | CONS ---
[address] [address] CONSULTATION REPORT PATIENT: SHAY DOAN : 1930 MR#: [id number] ADMIT: 09/28/2016 JOB ID: [id number] CARDIOLOGY CONSULTATION: DATE OF SERVICE: 09/30/2016 CHIEF COMPLAINT: I was asked by hospital team to consult on this patient given a history of atrial fibrillation with pacemaker placement, but also status post a recent fall and findings of isolated episodes of nonsustained VT. HISTORY OF PRESENT ILLNESS: This patient is an 85-year-old woman who has a history of chronic atrial fibrillation. Per records has a history of AV node ablation with a generator upgrade and pacer lead placement in 2012. She is chronically paced. Apparently she also has a history of ventricular tachycardia, COPD, hypertension and chronic kidney disease. She had a history of problems with equilibrium issues and she often feels somewhat unsteady on her feet. However prior to this admission, she knew she was going to go down and feels that she tripped on something but did go down and injured her knee and her hip as well. She does not recall feeling any chest pain, palpitations. She does not believe she blacked out. She was taking codeine for pain and not sure if she took that on the morning of the event. She is also on metoprolol on a regular basis for treatment of her hypertension and it is not clear that she was taking that either. She was admitted and placed on telemetry. Metoprolol was initially held given concerns that she might have had relative hypotension, and during the period where she was off metoprolol, she had some episodes of nonsustained VT which were not symptomatic. Now she is back on her metoprolol with blood pressures which are trending in a more normal direction. In speaking to her today, she denies any chest pain, shortness of breath. She has not been up. She is getting up with assistance. She has some discomfort and therefore cannot get up by herself. She is also complaining of the need to use the restroom. She denies any problems with orthopnea, PND. PAST MEDICAL HISTORY/PROBLEM LIST: 1. History of atrial fibrillation with history of AV node ablation and pacer placement. She is on warfarin. Per record, she has history of ventricular tachycardia. 2. History of abdominal aortic aneurysm, repaired with stent graft placement in 2012. 3. COPD. 4. Pulmonary hypertension possibly related to the COPD. 5. Hypertension. 6. Chronic kidney disease. 7. Pacer placement as noted. CURRENT MEDICATIONS: Include: 1. Pantoprazole 40 daily. 2. Torsemide 10 daily. 3. Subcu heparin. 4. Colace. 5. Metoprolol 100 b.i.d. (this was her home dose and was held at the time of admission). 6. Tramadol q.6 h. p.r.n. 7. Warfarin. 8. Zofran p.r.n. ALLERGIES: Are multiple and include: 1. LIPITOR. 2. LOVASTATIN. 3. IODINE., 4. AMOXICILLIN. 5. CEFUROXIME. 6. NITROFURANTOIN. 7. ERYTHROMYCIN. 8. SULINDAC. SOCIAL HISTORY: Former tobacco use. Occasional alcohol use. FAMILY HISTORY: No early coronary disease. REVIEW OF SYSTEMS: Overall health: Denies fevers, chills, weight loss. GI: No problems with blood in her stool. : No dysuria, hematuria. Pulmonary: Denies any increased shortness of breath but does have lung disease. Cardiac: No chest pain, no palpitations. All other per HPI. Musculoskeletal: Some discomfort in her knee and hip, difficulty getting out of bed by herself. Endocrine: No heat or cold intolerance. Heme: No easy bruising or bleeding. ENT: No sore throat. Difficulty swallowing. Ophtho: No vision changes. Neuro: No speech changes. Psych: No acute issues. All other 12 point review of systems are negative. PHYSICAL EXAMINATION: Blood pressure is 170/78. She is afebrile. Heart rate 65. Sats are 94% on 1 L. General: Appearing somewhat confused speaking to me trying to recall the events. Head and neck exam: Normocephalic, atraumatic. Neck: I do not appreciate carotid bruits. Some distention of the external jugular vein noted on the right side. Heart exam: Regular rate. I do not appreciate murmurs on this exam although somewhat difficult exam. Lungs sound clear anteriorly. Abdomen is soft, nontender. Back: No CVA tenderness to palpation. Extremities: Warm. No appreciable edema. Gait is not tested. Neuro: Somewhat confused but alert and interactive. Oropharynx: Mucous membranes moist. Skin: No obvious breakdown appreciated. Psych: appropriate mood and affect. Optho: vision grossly intact LABORATORY DATA: White count 8.4, H and H 12.3 and 39.2, platelets of 104,000, which apparently is somewhat chronic. Chemistry shows sodium 139, potassium 4.1, chloride and bicarb 102 and 22, respectively. BUN and creatinine 31 and 1.49. Her creatinine has actually improved a bit since admission. Troponin not elevated. ProBNP at 80-67. DIAGNOSTIC DATA: Last echocardiogram was performed in 2015 that showed EF about 55% to 60% with synchronous pattern. Right ventricle is felt to be mildly dilated. Systolic function was normal. Pulmonary hypertension was described as severe with an estimated RV systolic pressure 75 mm. Right atrial pressure was elevated. Both atria were severely dilated. Moderate mitral regurgitation. Moderate to severe tricuspid regurgitation. IMAGING: A chest x-ray showed new bilateral pleural effusions. There is fluid overload, cardiomegaly. Hip and pelvis showed no trauma, post surgical changes. IMPRESSION: This patient is a woman who has a history of atrial fibrillation with apparent atrioventricular node ablation. Pacer placement. Looks like the last upgraded generator was in 2012. She apparently has somewhat chronic problems with equilibrium. She thinks she tripped, but she did fall and fortunately did not cause any fractures but has injured her knee and her hip. She does not recall any palpitations. Does not recall any chest pain or other concerning symptoms prior to her fall. She did have some nonsustained VT which did not appear to be symptomatic. She was off her metoprolol at the time and per records it says that she does have some history of ventricular tachycardia. PLAN: 1. I think getting the pacer interrogated would be helpful. 2. Repeat echocardiogram just to make sure there has been no change in her pulmonary pressures. 3. Will continue to monitor to see if there are any arrhythmias or other concerning findings now that she is back on her metoprolol and will follow her blood pressure and make sure that this is better. Will also have to see how she does with physical therapy when she gets up and walks around to see if she is having any recurrent dizziness. This will allow us to better assess if there are any cardiac causes for this. I spent 45 minutes reviewing the old records, reviewing the pacer interrogation , reviewing telemetry, speaking with the patient and examining her. RAMSES
--- NOTE | 2016-09-30 15:24 | NUR ---
Grounds And Nursery Specialist Grounds And Nursery Specialist at bed side this shift. new orders for Echocardiogram. Addendum: 09/30/16 at 1526 by GALLITO BERMUDEZ RN Amended: Links added.
--- NOTE | 2016-09-30 17:07 | NUR ---
Attempted to choice pt for SNF. Pt getting sonogram. CYNDEE Fragoso
--- NOTE | 2016-09-30 17:22 | DRSVH ---
[facility] [address] [place] [address] Echocardiogram Report Name: SHAY DOAN Date: 09/30/2016 Height: 67 in Hospital Exam Location: [facility] Weight: 140 lb Gender: Female BSA: 1.7 m2 : 1930 Age: 85 yrs BP: 170/78 mmHg Reason For Study: Near Syncope Ordering Physician: Performed By: Flores Parker Interpretation Summary 1. Normal left ventricular size, wall thickness and systolic function. 2. Mildly dilated right ventricle with normal systolic function. The estimated RVSP is 55 mm Hg. 3. At least moderate tricuspid regurgitation into a dilated right atrium. Compared to the previous study, the estimated RVSP is somewhat less. The mitral regurgitation does not appear as significant. Procedure: A two-dimensional transthoracic echocardiogram with color flow and Doppler was performed. The study quality was technically adequate. Comparison is made with the echocardiogram of 03/15/2016. The patient has a paced rhythm. Left Ventricle: The left ventricle is normal in size. There is normal left ventricular wall thickness. Left ventricular systolic function is normal. There are no obvious focal wall motion abnormalities noted but poor endocardial definition reduces the sensitivity for the detection of such. Right Ventricle: There is a pacemaker lead in the right ventricle. The ventricle appears at least mildly dilated. The right ventricular systolic function is normal. Atria: Both atria are severely dilated. There is no Doppler evidence for an interatrial shunt. Mitral Valve: The mitral valve leaflets appear mildly thickened, but open well. There is mild to moderate mitral regurgitation. Aortic Valve: The aortic valve is trileaflet. The aortic valve opens well. The aortic valve is slightly calcified. There is trace aortic regurgitation. Tricuspid Valve: The tricuspid valve leaflets are thin and pliable. There is moderate tricuspid regurgitation. The right ventricular systolic pressure is estimated at 55 mmHg assuming a right atrial pressure of 15 mm Hg. Pulmonic Valve: The pulmonic valve leaflets are thin and pliable; valve motion is normal. There is mild pulmonic regurgitation. Great Vessels: The aortic root is normal size. The ascending aorta is at the upper limits of normal in size. The IVC is dilated (diameter is greater than 2.1 cm) and it collapses less than 50% with a sniff. This suggests a high right atrial pressure of 15 mm Hg. Pericardium/ Pleura There is no pericardial effusion. MMode/2D Measurements & Calculations LVIDd: 5.4 cm RA long axis LVOT diam LVIDs: 3.4 cm LA A2 area: 27.3 cm FS: 38.1 % LA A4 area: 29.4 cm RA area Ao root diam EPSS: 0.68 cm LA length (vol): 7.0 cm IVSd: 1.0 cm LA vol: 96.5 ml : 34.0 cm Aortic Jxn LVPWd: 0.56 cm LA vol index RA vol : 138.ml asc Aorta RA Diam: 3.3 cm IVC diam: 2.5 cm : 79.9 mm2 LV daniel. diameter/BSA LV sys. diameter/BSA RVD1 (basal) TAPSE: 2.1 cm (cm/m^2): 3.1 (cm/m^2): 1.9 Doppler Measurements & Calculations Ao V2 max MV E max leonard Med Peak E' Leonard TR max leonard : 121.2 cm/sec : 120.1 cm/sec : 317.9 cm/sec Ao max PG MV P1/2t: 46.9 msecE/E' med: 18.4 TR max PG : 5.9 mmHg MR ERO: 0.19 cm2 Lat Peak E' Leonard : 40.4 mmHg Ao mean PG PA V2 max E/E' lat: 10.2 : 79.2 cm/sec LVOT Max Leonard E/e' average: 14.3 PA mean PG : 92.7 cm/sec LEENA(I,D): 1.8 cm PA Accel Time sev ratio : 0.07 sec MV dec time MV P1/2t max leonard Ao V2 mean LV V1 max PG : 0.12 sec : 77.7 cm/sec Ao V2 VTI: 24.8 cm LV V1 VTI MVA(P1/2t): 4.7 cm2 : 18.5 cm LEENA(V,D): 1.8 cm2 MR flow rate PA V2 mean LEENA indexed to BSA : 100.0 cm3/sec : 53.7 cm/sec (cm^2/m^2): 1.0 MR PISA radius Reading Physician:05:21 PM
--- NOTE | 2016-09-30 17:27 | NUR ---
Elevated SBP BP 183/79, pulse 69. per Tele 100% Vpaced, 60 beats. patient is asymptomatic. Dmitry paged hospitalist and awaiting call back.
--- NOTE | 2016-09-30 17:46 | NUR ---
Metoprolol Hospitalist orders to give Metoprolol PO 100 mg early. Given as ordered.
[2016-10-01] VITALS (7 sets, daily range): BP systolic 140–167; BP diastolic 61–73; PULSE 60–65; RESP 16–18; O2SAT 95–96
[2016-10-01] MEDS: Pantoprazole 40 mg ER24 Tablet PO SCH (06:13)
--- NOTE | 2016-10-01 06:34 | NUR ---
Pain Pt states pain is zero most of the time if she lies still. Pt states some spasms at rest. Pt turns in bed poorly due to pain which is 10/10 when turning.
[2016-10-01 06:51] LABS: BASOPHILS % (AUTO) 0.2 % (0-3); EOSINOPHILS % (AUTO) 1.8 % (0-5); MONOCYTES % (AUTO) 13.5 % (4-12); Mean Corpuscular Hemoglobin 30.5 pg (27.0-35.0); Mean Corpuscular Volume 95.5 fL (81-100); NEUTROPHILS % (AUTO) 73.4 % (40-74); Platelet Count 99 bil/L (150-400)
[2016-10-01 07:08] LABS: INR 2.22 ratio
[2016-10-01 07:22] LABS: Magnesium 1.9 mg/dL (1.6-2.6); Phosphorus 3.6 mg/dL (2.5-4.9)
[2016-10-01] MEDS: Polyethylene Glycol (PEG) 17 Gm Powder PO SCH (08:05)
--- NOTE | 2016-10-01 08:37 | PCM.PHAPRO ---
Progress s/p fall 1-Jeremi 2-Jeremi 3-Jeremi 1.66 1.85 2.22 0.23 0.19 0.37 5 5 2.5 Pro Mercado Pharm.D Oct 01, 2016 08:36
--- NOTE | 2016-10-01 11:06 | NUR ---
Case Management- IMM explained and signed by patient. Copy given to patient and orginal placed in chart. Skye Boykin RN/UR
--- NOTE | 2016-10-01 12:21 | PCM.PNMED ---
Subjective Date of Service Oct 01, 2016 Subjective pt was very confused, didn't answer questions appropriately, still has intermittent spasm reported difficulty of swallowing, awaits swallow eval no episode reported on telemetry Exam Vital Signs Vital Sign - Last Date Time Temp Pulse Resp B/P Pulse Ox O2 Delivery O2 Flow Rate FiO2 10/01/16 10:06 63 10/01/16 07:45 36.9 18 167/71 95 Nasal Cannula 1.00 Intake and Output 09/30/16 09/30/16 10/01/16 Cumulative From/Thru 15:00 23:00 07:00 09/28/16 12:03 - 10/01/16 06:28 Intake Total 474 ml 260 ml 1714 ml Output Total 200 ml 1250 ml Balance 274 ml 260 ml 464 ml Intake Oral 474 ml 250 ml 1624 ml IV Total 0 ml 10 ml 90 ml Output Urine Total 200 ml 1250 ml # Voids 3 1 5 # Bowel Movements 0 0 Exam Overall pt was bit confused, not able to answer questions correctly. AAOx2, no JVD, MMM, no LAD RRR, nl s1, s2 no mrg CTAB, no w,c S,ND,NT,normoactive BS+ warm, no edema, pulses 2/2 IVs and Medications Medications Reviewed: Medications were reviewed in detail Lab and Diagnostics Result Diagram: 10/01/1662910/01/16 0630 X-Rays, CTs and MRIs PROCEDURE: X-RAY PELVIS W/LAT HIP (LT) ([id number]) INDICATIONS: pain TECHNIQUE: AP pelvis with lateral view(s) of the left hip(s). COMPARISON: [facility], CT, CT ABD PELVIS WO CON, 03/05/2015, 12: 24. FINDINGS: Bones: No fractures or dislocations. Prior bilateral hip arthroplasties. Pelvic ring appears intact. No suspicious bony lesions. Soft tissues: The visualized bowel gas pattern is normal. No suspicious soft tissue calcifications. Uterine fibroid calcifications to right of midline low pelvis. Aortoiliac endostent placement IMPRESSION: No trauma found. Postsurgical changes as discussed, uterine fibroid calcifications. Dictated by: Cali Avila M.D. on 09/28/2016 at 13:11 Approved by: Cali Avila M.D. on 09/28/2016 at 13:13 Assessment & Plan Acute, active ground level fall, POA, unlikely mechanical, initially thought to be underlying "disequilibrium" as pt described, given her age, probable ventricular arrhythmia -continue telemetry, -continue PT -tramadol, tylenol prn, will avoid heavy opioid given hx suggested that fall might be induced from codeine she took -will avoid flexeril prn as much as possible given confusion -orthostatic v/s # Chronic atrial fibrillation s/p AV ablation and dual chamber permanent pacemaker anticoagulated with Coumadin. EKG showed V-paced. Telemetry showed multiple episode of NSVT, likely due to BB being held. TTE 09/30 unremarkable -continue outpatient warfarin to be dosed by pharmacy -appreciate , for further recs, -continue home BB for now # Hypertension, uncontrolled, 170-190s, resolving with home BB #acute encephalopathy, POA, likely delirium given age, acute fall, underlying cognitive dysfunction, wax and wane, -aggressive reorientation, avoid sedatives and anticholinergics -given recent fall, will get CTH, -UA, PVR check #reported Chronic, stable #Abdominal aortic aneurysm, status post aortic stent graft placement for 5.9 cm abdominal aortic aneurysm (2012), stable #Pulmonary hypertension, Chronic obstructive pulmonary disease, continue home inhaler #chronic thrombocytopenia, stable, #Chronic kidney disease stage III, stable #GERD, PPI prn #Hyperlipidemia. continue statin #Urinary incontinence with urgency, continue oxybutynin #Traumatic compression fracture of T9 and chronic back pain, will try to avoid opioid for now Cholelithiasis. Colonic diverticulosis. Dispo:likely 1-2days, SNF diet:mechanical dysphagia, awaits s/s eval dvt ppx:systemic AC DNR/DNI Time spent 35min Vin Santiago MD Oct 01, 2016 12:21
--- NOTE | 2016-10-01 12:47 | DRSVH ---
PROCEDURE: CT BRAIN WITHOUT CONTRAST ([id number]) INDICATIONS: recent fall confusion TECHNIQUE: Noncontrast 4.5 mm thick angled axial sections acquired from the foramen magnum to the vertex, with c oronal reformats. COMPARISON: [facility], CT, CT BRAIN WO CON, 03/30/2016, 15:52. [facility], CT, CT BRAIN WO CON, 01/06/2015, 2:44. [facility], CT, CT BRAIN WO CON, 12/26/2014, 20:42 . FINDINGS: Image quality: Excellent. CSF spaces: Basal cisterns are patent. No extra-axial fluid collections. The ventricles are symmet jan in size and shape. Brain: No intracranial bleeds or masses. There is cerebral volume loss for age, with resultant vent ricular and sulcal prominence. There are periventricular and deep white matter chronic small vessel ischemic changes. There is intracranial internal carotid artery atherosclerosis. Skull and face: Calvarium and visualized facial bones appear intact, without suspicious lesions. Sinuses: Visualized sinuses and mastoids are clear. IMPRESSION: No acute intracranial disease process. Dictated by: Elo Soria MD, PhD on 10/01/2016 at 12:44 Approved by: Elo Soria MD, PhD on 10/01/2016 at 12:46
--- NOTE | 2016-10-01 14:30 | NUR ---
Social Work Note: Continued Discharge Planning Data& Assessment: SW attempted to meet with pt at bedside to discuss discharge planning and present SNF list for preferences per MD order. Pt was very confused and talking about adoption, her son being very young and did not seem to be oriented to place or time. RN and MD aware. YARELY attempted to call pt son Rayshawn ([phone]) twice but the phone continuously rang and did not provide the opportunity to leave a voicemail. SW also left a voicemail for pt friend Tete ([phone]) who per RN, is pt caregiver as well. SW to continue to contact pt family and supports to discuss discharge planning and follow for pt mentation improvement. SW to continue to follow. Plan: Anticipated discharge to SNF when medically ready. SW to follow up with pt and pt family regarding SNF list and preferences when appropriate. SW to continue to follow. CYNDEE Salinas
--- NOTE | 2016-10-01 18:18 | NUR ---
Confusion Pt. at the beginning of this shift has been confused and is still confused by the end of this shift. Pt. states seeing people in the corner of her room who are not there. Pt. is able to state her name and place only. She had trouble swallowing her medications this morning and I gave them in apple sauce and Pt. was able to swallow them. Pt. at times got agitated and stated "I cannot trust anyone". For dinner Pt. was seen trying to take a bite out of her call light, I came in and reorientated Pt. to dinner tray with utensils in hand. Per NOC report and PT report this morning, Pt. has seen increased confusion, MD was made aware this morning and he recommended to hold off on pain medications. Will continue to monitor.
--- NOTE | 2016-10-01 20:00 | NUR ---
Confusion Son called and talked with pt. Son then called unit about his moms confusion. Son reports confusion has been related to UTIs in the past.
[2016-10-02] VITALS (8 sets, daily range): BP systolic 129–186; BP diastolic 58–74; PULSE 60–82; RESP 16; O2SAT 94–97
--- NOTE | 2016-10-02 02:42 | NUR ---
Took patient wallet and credit cards and cheekbook and her money and put it in the hospital safe.
[2016-10-02 07:32] LABS: INR 2.68 ratio
[2016-10-02] MEDS: Pantoprazole 40 mg ER24 Tablet PO SCH (07:47)
[2016-10-02] MEDS: Polyethylene Glycol (PEG) 17 Gm Powder PO SCH (07:47)
[2016-10-02 08:03] LABS: BASOPHILS % (AUTO) 0.4 % (0-3); EOSINOPHILS % (AUTO) 0.7 % (0-5); MONOCYTES % (AUTO) 12.6 % (4-12); Mean Corpuscular Hemoglobin 30.2 pg (27.0-35.0); Mean Corpuscular Volume 92.4 fL (81-100); NEUTROPHILS % (AUTO) 77.4 % (40-74); Platelet Count 125 bil/L (150-400)
--- NOTE | 2016-10-02 09:28 | PCM.PHAPRO ---
Progress s/p fall RTM van RTM RTM 1-Jeremi 2-Jeremi 3-Jeremi 4-Jeremi 1.66 1.85 2.22 2.68 0.23 0.19 0.37 0.46 5 5 2.5 1 Pro Mercado Pharm.D Oct 02, 2016 09:28
--- NOTE | 2016-10-02 09:39 | NUR ---
Bladder scan Paged Dr Santiago about bladder scan for pt. Dr Santiago instructed no straight cath unless result is over 250ml. Result of 201ml. pagejuvencio with result. Addendum: 10/02/16 at 1246 by JASMIN FLAHERTY RN Confusion Pt continues to be confused throughout shift. Asking for items that are not there, and seeing things that aren't there. Caregiver Tete stopped in, pt was sleeping. Pt incontinent of urine, bladder scanned post void result 198ml. Will page to ask for straight cath order.
--- NOTE | 2016-10-02 11:07 | NUR ---
Evaluation completed. Please go to "Notes" then click on "Assessments and Notes" (bottom left corner of screen). Then select appropriate discipline tab on top of screen. Addendum: 10/02/16 at 1212 by RL ALAMO The patient did not demonstrate any signs or symptoms of aspiration during bedside swallow eval. Recommending dysphagia mechanical textures d/t esophageal dysmotility, with thin liquids. If the MD suspects aspiration, then it is recommended that a modified barium swallow study be ordered. ST will sign off at this time unless an MBSS is ordered, as the pt appears to be safely tolerating her least restrictive diet level.
--- NOTE | 2016-10-02 11:17 | NUR ---
Social Work Note: Continued Discharge Planning Data& Assessment: YARELY received order from to arranged SNF placement for rehab. SW attempted to meet with pt at bedside to discuss SNF preferences. Pt is still confused and not at her baseline mentation at this time. YARELY left SNF list at pt bedside and contacted pt son Rayshawn ([phone]) who explained that pt confusion is usually associated with a UTI, MD aware. Pt son states pt has been to [facility] in the past and that would be his first preference. Keeping pt in the [facility] is a priority and so if [facility] is unable to accept pt, then [facility] would be the second preference. YARELY inquired about pt caregiver/friend Tete ([phone]) who has been seen at pt beside. Pt son confirmed that Tete aids pt with transportation, meals and chores 4 days a week, is able to be involved in pt care or if staff has any other questions regarding pt baseline, Tete would be able to answer those questions appropriately. Pt son denies any other needs at this time. YARELY spoke with Natali from [facility] for SNF referral who agreed to review pt for potential acceptance, access provided. All updated and agreeable to plan. SW to continue to follow. Plan: Anticipated discharge to [facility] when medically ready pending acceptance. All updated and agreeable to plan. YARELY to continue to follow. CYNDEE Salinas
--- NOTE | 2016-10-02 12:01 | PCM.PNMED ---
Subjective Date of Service Oct 02, 2016 Subjective pt remained confused, clinically stable not retaining urine, no dysuria still has intermittent cramps on Left hip area BP uncontrolled 160-170s pt thinks she is at home, although remembered her fall as per caregiver yesterday this is different her baseline Exam Vital Signs Vital Sign - Last Date Time Temp Pulse Resp B/P Pulse Ox O2 Delivery O2 Flow Rate FiO2 10/02/16 09:58 60 10/02/16 09:52 Supplement Oxygen 10/02/16 08:55 36.6 16 186/74 97 1.00 Intake and Output 10/01/16 10/01/16 10/02/16 Cumulative From/Thru 15:00 23:00 07:00 09/28/16 12:03 - 10/02/16 05:27 Intake Total 110 ml 1824 ml Output Total 1250 ml Balance 110 ml 574 ml Intake Oral 100 ml 1724 ml IV Total 10 ml 100 ml Output Urine Total 1250 ml # Voids 1 6 # Bowel Movements 0 Exam calm, only oriented to name no JVD, MMM, no LAD RRR, nl s1, s2 no mrg CTAB, no w,c S,ND,NT,normoactive BS+ warm, no edema, pulses 2/2 neuro: CN2-12 grossly intact, IVs and Medications Medications Reviewed: Medications were reviewed in detail Lab and Diagnostics Result Diagram: 10/02/16 0600 10/01/16 0630 X-Rays, CTs and MRIs PROCEDURE: X-RAY PELVIS W/LAT HIP (LT) ([id number]) INDICATIONS: pain TECHNIQUE: AP pelvis with lateral view(s) of the left hip(s). COMPARISON: [facility], CT, CT ABD PELVIS WO CON, 03/05/2015, 12: 24. FINDINGS: Bones: No fractures or dislocations. Prior bilateral hip arthroplasties. Pelvic ring appears intact. No suspicious bony lesions. Soft tissues: The visualized bowel gas pattern is normal. No suspicious soft tissue calcifications. Uterine fibroid calcifications to right of midline low pelvis. Aortoiliac endostent placement IMPRESSION: No trauma found. Postsurgical changes as discussed, uterine fibroid calcifications. Dictated by: Cali Avila M.D. on 09/28/2016 at 13:11 Approved by: Cali Avila M.D. on 09/28/2016 at 13:13 Assessment & Plan Acute, active #acute encephalopathy, POA, likely delirium given age, acute fall, underlying cognitive dysfunction, wax and wane. possibly hypertensive, no metabolic derrangement, CTH obtained 10/02 given fall, coumadin, but no bleeds, non-focal on exam. No signs of systemic infection. -aggressive reorientation, avoid sedatives and anticholinergics -will send another UA, -MR stroke protocol today ground level fall, POA, unlikely mechanical, initially thought to be underlying "disequilibrium" as pt described, given her age, probable ventricular arrhythmia. CTH neg 10/02. -continue telemetry, -continue PT -tramadol, tylenol prn, will avoid heavy opioid given hx suggested that fall might be induced from codeine she took -will avoid flexeril prn as much as possible given confusion -orthostatic v/s # Chronic atrial fibrillation s/p AV ablation and dual chamber permanent pacemaker anticoagulated with Coumadin. EKG showed V-paced. Telemetry showed multiple episode of NSVT, likely due to BB being held. TTE 09/30 unremarkable -continue outpatient warfarin to be dosed by pharmacy -appreciate , for further recs, -continue home BB for now # Hypertension, uncontrolled, 170-190s, continue home BB, add [id number] today Chronic, stable #Abdominal aortic aneurysm, status post aortic stent graft placement for 5.9 cm abdominal aortic aneurysm (2012), stable #Pulmonary hypertension, Chronic obstructive pulmonary disease, continue home inhaler #chronic thrombocytopenia, stable, #Chronic kidney disease stage III, stable #GERD, PPI prn #Hyperlipidemia. continue statin #Urinary incontinence with urgency, continue oxybutynin #Traumatic compression fracture of T9 and chronic back pain, will try to avoid opioid for now Cholelithiasis. Colonic diverticulosis. Dispo:likely 1-2days, SNF diet:mechanical dysphagia, awaits s/s eval dvt ppx:systemic AC DNR/DNI Time spent 35min Vin Santiago MD Oct 02, 2016 12:01
--- NOTE | 2016-10-02 15:10 | PROG NOTE ---
[address] [address] PROGRESS NOTE PATIENT: SHAY DOAN : 1930 MR#: [id number] ADMIT: 09/28/2016 JOB ID: [id number] DATE: 10/02/2016 CHIEF COMPLAINT: Following up on patient who had a fall with injury with episodes of ventricular tachycardia seen on telemetry. SUBJECTIVE: She still is stable but somewhat confused when I speak with her. We did interrogate the pacemaker and there was no ventricular tachycardia identified around the time of her fall. There is about 9 seconds of ventricular tachycardia which is recorded on September 04. Otherwise she is paced. The episodes of ventricular tachycardia seen on telemetry were too slow to be detected and also not symptomatic per review of the patient. PHYSICAL EXAMINATION: Blood pressure is a elevated, 186/74, heart rate 60. Sats are 97% on room air. CURRENT MEDICATIONS: Include: 1. Tylenol. 2. Pantoprazole. 3. Metoprolol 100 b.i.d. 4. Warfarin. LABORATORIES: Show white count 7.4, H and H 12.4 and 37.9, platelets 125,000. Chemistry shows sodium 142, potassium 4.8, chloride and bicarb 102 and 36. BUN and creatinine 34 and 1.48. IMPRESSION: My sense is that the fall was likely multifactorial in etiology. The patient's pacemaker is doing fine. She does have episodes of ventricular tachycardia but none of any significance recorded at the time of her admission. As noted we did see some ventricular tachycardia when she was off metoprolol in the hospital but this was asymptomatic as far as we know. PLAN: For her hypertension will continue the metoprolol. This would also suppress any ventricular tachycardia. I will leave it to the hospitalist team to adjust medications as indicated for her hypertension. Her echocardiogram looks stable with actually improved right ventricular systolic pressures. I will sign off for now and please consult us if you have any additional concerns in the interim. RAMSES
--- NOTE | 2016-10-02 16:16 | NUR ---
Have not been able to get a urine sample, due to incontinence. Will page dr for straight cath orders.
[2016-10-03 05:32] VITALS: BP 171/75; PULSE 60; RESP 16; O2SAT 96
[2016-10-03 06:20] LABS: APPEARANCE,URINE CLEAR (CLEAR,HAZY); COLOR,URINE YELLOW (YELLOW); OCCULT BLOOD,URINE TRACE (NEGATIVE); UROBILINOGEN,URINE NORMAL (NORMAL)
--- NOTE | 2016-10-03 06:22 | NUR ---
Mentation pt still A&O to self, year, and the president. but she doesn't know where she is. pt still confused at times. pt state " I have medication in the drawer right there. give me the vicodin." which is in her room pointing toward the window. pt c/o hip pain during turning. administered schedule Tylenol. will continue to monitor.
[2016-10-03] MEDS: Pantoprazole 40 mg ER24 Tablet PO SCH (06:43)
[2016-10-03 07:07] LABS: INR 2.82 ratio
[2016-10-03 07:08] LABS: BASOPHILS % (AUTO) 0.3 % (0-3); EOSINOPHILS % (AUTO) 1.9 % (0-5); MONOCYTES % (AUTO) 15.7 % (4-12); Mean Corpuscular Hemoglobin 29.7 pg (27.0-35.0); Mean Corpuscular Volume 94.5 fL (81-100); NEUTROPHILS % (AUTO) 68.7 % (40-74); Platelet Count 136 bil/L (150-400)
[2016-10-03] MEDS: Polyethylene Glycol (PEG) 17 Gm Powder PO SCH (08:43)
--- NOTE | 2016-10-03 09:44 | PCM.PHAPRO ---
Progress Date of Service: Oct 03, 2016 s/p fall INR = 2.82, hct = 32.5, plts = 136. Pt continues on warfarin therapy for afib. INR goal is 2-3. INR is therapeutic today, will give another 1mg warfarin dose today. INR is ordered qday. Pharmacy will continue to follow this pt's warfarin therapy. Date August 29-Jeremi 2-Jeremi 3-Jeremi 4-Jeremi 5-Jeremi INR 1.43 1.66 1.85 2.22 2.68 2.82 INR change 0.23 0.19 0.37 0.46 0.14 Warf Dose 7 MG(2 + 5 (HOME)) 5 5 2.5 1 1mg Marga Vazquez PharmD Oct 03, 2016 09:44
[2016-10-03 10:00] VITALS: BP 150/65; PULSE 60; RESP 18; O2SAT 96
[2016-10-03 10:19] VITALS: PULSE 68
--- NOTE | 2016-10-03 13:09 | NUR ---
Social Work: Continued Discharge Planning D: EMR reviewed. Pt was admitted as in-patient on 10/01. Pt is on day 5 of hospitalization. YARELY spoke with Araseli from [facility] who confirmed that pt will be accepted with Dr. Sewell to follow. PASSR and body form in hard chart. SW will continue to follow for needs. A: Pt for whom a SNF has been deemed medically necessary. P: Pt to discharge to [facility] with Dr. Sewell to follow. PASSR and body form in hard chart. YARELY will continue to follow for needs. CYNDEE Fragoso
--- NOTE | 2016-10-03 14:04 | PCM.PNMED ---
Subjective Date of Service Oct 03, 2016 Subjective Resting in bed. Confusion a bit better today as time has progresse. Still a two person assist to get from bed to chair. No other problems per nursing. Exam Vital Signs Vital Sign - Last Date Time Temp Pulse Resp B/P Pulse Ox O2 Delivery O2 Flow Rate FiO2 10/03/16 12:07 Room Air 10/03/16 10:19 68 10/03/16 05:32 36.5 16 171/75 96 10/02/16 15:18 1.00 Intake and Output 10/02/16 10/02/16 10/03/16 Cumulative From/Thru 15:00 23:00 07:00 09/28/16 12:03 - 10/03/16 06:06 Intake Total 300 ml 2124 ml Output Total 1250 ml Balance 300 ml 874 ml Intake Oral 300 ml 2024 ml IV Total 100 ml Output Urine Total 1250 ml # Voids 1 1 3 11 # Bowel Movements 1 3 4 Exam Lungs; clear anterioraly Cardia; irregular at 70, no murmur Skin; no rash Neurp; little confused, CN 2-12 intact, no sig focal motor defects, finger nose pretty good and bilaterally equal Lab and Diagnostics Result Diagram: 10/03/16 0615 10/01/16 0630 X-Rays, CTs and MRIs PROCEDURE: X-RAY PELVIS W/LAT HIP (LT) ([id number]) INDICATIONS: pain TECHNIQUE: AP pelvis with lateral view(s) of the left hip(s). COMPARISON: [facility], CT, CT ABD PELVIS WO CON, 03/05/2015, 12: 24. FINDINGS: Bones: No fractures or dislocations. Prior bilateral hip arthroplasties. Pelvic ring appears intact. No suspicious bony lesions. Soft tissues: The visualized bowel gas pattern is normal. No suspicious soft tissue calcifications. Uterine fibroid calcifications to right of midline low pelvis. Aortoiliac endostent placement IMPRESSION: No trauma found. Postsurgical changes as discussed, uterine fibroid calcifications. Dictated by: Cali Avila M.D. on 09/28/2016 at 13:11 Approved by: Cali Avila M.D. on 09/28/2016 at 13:13 Assessment & Plan 1. acute delerium, POA, improving -avoid poly pharmacy -D/C flexeril, reduce ultram to 25 q 6 prn 2. Right hip copntusion, poa, active ground level fall, x-ray negative for fracture -continue telemetry, -continue PT -will use low dose vicodin for pain and get rid of the flexeril, monitor for side effects 3. Chronic atrial fibrillation, poa, stable -s/p AV ablation and dual chamber permanent pacemaker anticoagulated with Coumadin. EKG showed V-paced. Telemetry showed multiple episode of NSVT, likely due to BB being held. TTE 09/30 unremarkable 4. Hypertension, uncontrolled, 170-190s, continue home BB, add [id number] today #Abdominal aortic aneurysm, status post aortic stent graft placement for 5.9 cm abdominal aortic aneurysm (2012), stable #Pulmonary hypertension, Chronic obstructive pulmonary disease, continue home inhaler #chronic thrombocytopenia, stable, #Chronic kidney disease stage III, stable #GERD, PPI prn #Hyperlipidemia. continue statin #Urinary incontinence with urgency, continue oxybutynin #Traumatic compression fracture of T9 and chronic back pain, will try to avoid opioid for now Cholelithiasis. Colonic diverticulosis. Dispo:likely 1-2days, SNF diet:mechanical dysphagia, awaits s/s eval dvt ppx:systemic AC DNR/DNI Anne Lu MD Oct 03, 2016 14:04
[2016-10-03] MEDS: HYDROcodone-APAP 5-325 mg Tablet PO PRN (17:38)
--- NOTE | 2016-10-03 18:23 | NUR ---
Mentation/Activity Patient more coherent and conversant today.Able to work with PT, sat in the bedside chair at lunch time, transferred to bedside commode and tolerated. Still awaiting SNIF placement at this time. Given Vicodin tablet for breakthrough pain this pm. Will continue to monitor.
[2016-10-03 18:37] VITALS: BP 144/64; PULSE 61; RESP 18; O2SAT 100
[2016-10-03 20:40] VITALS: BP 130/62; PULSE 65; RESP 16; O2SAT 98
[2016-10-04 00:24] VITALS: PULSE 63
[2016-10-04] MEDS: HYDROcodone-APAP 5-325 mg Tablet PO PRN (05:16)
[2016-10-04 05:20] VITALS: BP 171/75; PULSE 63; RESP 16; O2SAT 96
--- NOTE | 2016-10-04 05:36 | NUR ---
Mentation/Pain/Activity pt confusion is better than it has been. A&OX3. Pt took schedule PO Tylenol and PRN [place] for intermittent hip pain while moving and turning in bed, effective. pt up to the [facility] with 2PA. pt with high JOSE score desat. while asleep (88-90%). administered 1L O2 via NC with sat in mid 90s. CPOX on at . care continue. Addendum: 10/04/16 at 0707 by JUNIOR GUZMAN RN pt BP 171/75 with HR 63. Asymptomatic. notified hospitalist.
[2016-10-04 05:58] LABS: BASOPHILS % (AUTO) 0.2 % (0-3); EOSINOPHILS % (AUTO) 2.8 % (0-5); MONOCYTES % (AUTO) 16.3 % (4-12); Mean Corpuscular Hemoglobin 30.2 pg (27.0-35.0); Mean Corpuscular Volume 94.7 fL (81-100); Platelet Count 136 bil/L (150-400)
[2016-10-04 06:04] LABS: INR 2.15 ratio
[2016-10-04] MEDS: Pantoprazole 40 mg ER24 Tablet PO SCH (06:21)
--- NOTE | 2016-10-04 07:41 | PCM.PHAPRO ---
Progress Date of Service: Oct 04, 2016 Warfarin Dosing INR = 2.15, hct = 30.4, plts = 136 Pt continues on warfarin for afib. INR is therapeutic today. Goal INR = 2-3. Will give warfarin 2.5mg PO tonight. INRs are ordered. Pharmacy will continue to follow this pt's warfarin therapy. Date -August 1-Jeremi 2-Jeremi 3-Jeremi 4-Jeremi 5-Jeremi 6-Jeremi INR 1.43 1.66 1.85 2.22 2.68 2.82 2.15 INR change 0.23 0.19 0.37 0.46 0.14 -0.67 Warf Dose 7 MG(2 + 5 (HOME)) 5 5 2.5 1 1mg 2.5MG Marga Vazquez S PharmD Oct 04, 2016 07:41
[2016-10-04] MEDS: Polyethylene Glycol (PEG) 17 Gm Powder PO SCH (08:30)
[2016-10-04 08:33] VITALS: BP 129/61; PULSE 60; RESP 16; O2SAT 96
--- NOTE | 2016-10-04 10:04 | NUR ---
Social Work-readiness for discharge: Data:EMR Reviewed. Pt is on day 6 of hospitalization for hip contusion per H&P. Pt is not medically stable anticipate 1-2 more days. PT continues to recommend SNF. Pt has been accepted at [facility] with Dr. Sewell to follow. Paperwork and PASRR have been placed in the chart. SW will continue to follow. Assessment:Pt who would benefit from SNF. Plan:Pt to discharge to [facility] when medically stable with Dr. Sewell to follow.Paperwork and PASRR have been placed in the chart. SW will continue to follow. CYNDEE Atkinson
[2016-10-04 10:21] VITALS: PULSE 62
--- NOTE | 2016-10-04 12:08 | PCM.DIMED ---
Discharge Instructions Date of Service Oct 04, 2016 Dates of Hospitalization September 28, 2016 at 17:39 Discharge Diagnosis Discharge Diagnosis 1. acute delerium, POA, resolved 2. Right hip copntusion, poa, active 3. Chronic atrial fibrillation, poa, stable 4. Hypertension, uncontrolled, 170-190s, continue home BB, add [id number] today 5. Abdominal aortic aneurysm, 6. Pulmonary hypertension 7. chronic thrombocytopenia, 8. Chronic kidney disease stage III 9. GERD 10. Hyperlipidemia 11. Urinary incontinence with urgency 12. chronic back pain, 13. Cholelithiasis. 14. Colonic diverticulosis. Diet Discharge Diet: Low fat, Low Sodium, Heart Healthy Activity Discharge Activity: Limited until seen by PCP Patient Instructions Patient Instructions [facility]. Anne Lu MD Oct 04, 2016 12:08
[2016-10-04] MEDS ORDERED: HYDR-4003 PO (12:18)
--- NOTE | 2016-10-04 12:26 | PCM.DC.MED ---
Discharge Summary Date of Service Oct 04, 2016 Dates of Hospitalization Date of Hospital Admission September 28, 2016 at 17:39 Date of Discharge: Oct 04, 2016 Providers: Admitting Physician: Vin Santiago MD Primary Care Physician: Linda Vasques Attending Physician: Vin Santiago MD Diagnosis at Time of Discharge Diagnosis at Time of Discharge 1. acute delerium, POA, resolved 2. Right hip copntusion, poa, improving 3. Chronic atrial fibrillation, poa, stable 4. Hypertension, poa, stable 5. Abdominal aortic aneurysm, poa, stable 6. Pulmonary hypertension, poa, stable 7. chronic thrombocytopenia, 8. Chronic kidney disease stage III, poa, stable 9. GERD 10. Hyperlipidemia 11. Urinary incontinence with urgency 12. chronic back pain, 13. Cholelithiasis. 14. Colonic diverticulosis. Procedures XRay, CTs & MRIs PROCEDURE: X-RAY PELVIS W/LAT HIP (LT) ([id number]) INDICATIONS: pain TECHNIQUE: AP pelvis with lateral view(s) of the left hip(s). COMPARISON: [facility], CT, CT ABD PELVIS WO CON, 03/05/2015, 12: 24. FINDINGS: Bones: No fractures or dislocations. Prior bilateral hip arthroplasties. Pelvic ring appears intact. No suspicious bony lesions. Soft tissues: The visualized bowel gas pattern is normal. No suspicious soft tissue calcifications. Uterine fibroid calcifications to right of midline low pelvis. Aortoiliac endostent placement IMPRESSION: No trauma found. Postsurgical changes as discussed, uterine fibroid calcifications. Dictated by: Cali Avila M.D. on 09/28/2016 at 13:11 Approved by: Cali Avila M.D. on 09/28/2016 at 13:13 PROCEDURE: CT BRAIN WITHOUT CONTRAST ([id number]) INDICATIONS: recent fall confusion TECHNIQUE: Noncontrast 4.5 mm thick angled axial sections acquired from the foramen magnum to the vertex, with coronal reformats. COMPARISON: [facility], CT, CT BRAIN WO CON, 03/30/2016, 15:52. [facility], CT, CT BRAIN WO CON, 01/06/2015, 2:44. [facility], CT, CT BRAIN WO CON, 12/26/2014, 20:42. FINDINGS: Image quality: Excellent. CSF spaces: Basal cisterns are patent. No extra-axial fluid collections. The ventricles are symmetric in size and shape. Brain: No intracranial bleeds or masses. There is cerebral volume loss for age , with resultant ventricular and sulcal prominence. There are periventricular and deep white matter chronic small vessel ischemic changes. There is intracranial internal carotid artery atherosclerosis. Skull and face: Calvarium and visualized facial bones appear intact, without suspicious lesions. Sinuses: Visualized sinuses and mastoids are clear. IMPRESSION: No acute intracranial disease process. Dictated by: lEo Soria MD, PhD on 10/01/2016 at 12:44 Brief History 85yo F w/ extensive PMH including chronic afib s/p AV ablation, dual chamber permanent pacemaker anticoagulated with Coumadin, History of ventricular tachycardia., COPD, HTN, HLD, CKD, chronic gait instability, GERD, urinary incontinence with urgency p/w ground level fall. pt reportedly lost balance and reached out to 3leg chair, but it was collapsed so pt landed on the ground, hit coffee table. denied LOC, Patient is poor historian, was not able to explain how she felt exactly at the time of fall, patient stated that she has a equilibrium problem for long time, experienced similar "feeling" every day, regardless of situation, eating or moving or walking, episode is usually mild and everytime it happened, pt had to hang onto something so that she doesn't fall. Today, it was similar to her regular "equilibrium"problem but was not able to rely on something. pt denied particular dizziness but felt that she was unsteady, denied chest pain, sob, palpitation, blurry vision prior to fall. pt is eating okay with good appetite, living alone independently. Pt thought it might be from her taking Codeine for regular pain, but was unclear. pt thinks she took codeine this morning. Pt denied fever, chills. n/v/d, rather constipated, last BM yesterday, has baseline urinary incontinence, taking meds. denied chest pain or palpitation, tinnitus a/w with fall. ED. VS BP 160s, 61, 20, 98% on RA, hip/pelvic xray negative for fx. labs showed CKD, INR1.43, otherwise unremarkable. pt was assessed by PT in ED, was not a condition to go home, recommended admission. Hospital Course 1. acute delirium, POA, improving -D/C flexeril, reduce ultram to 25 q 6 prn 2. Right hip contusion, poa,improving ground level fall, x-ray negative for fracture -Patient able to ambulate few steps today and transfer with minimal assistance. However if pain continue or does not continue to improve further workup with CT and ortho referral shefali be indicated. -patient being discharged to detention facility, she will benefit from daily physical therapy and needs this at a facility. 3. Chronic atrial fibrillation, poa, stable -s/p AV ablation and dual chamber permanent pacemaker anticoagulated with Coumadin. EKG showed V-paced. Telemetry showed multiple episode of NSVT, likely due to BB being held. TTE 09/30 unremarkable 4. Hypertension, uncontrolled, 170-190s, continue home BB, add [id number] today #Abdominal aortic aneurysm, status post aortic stent graft placement for 5.9 cm abdominal aortic aneurysm (2012), stable #Pulmonary hypertension, Chronic obstructive pulmonary disease, continue home inhaler #chronic thrombocytopenia, stable, #Chronic kidney disease stage III, stable #GERD, PPI prn #Hyperlipidemia. continue statin #Urinary incontinence with urgency, continue oxybutynin #Traumatic compression fracture of T9 and chronic back pain, will try to avoid opioid for now Cholelithiasis. Colonic diverticulosis. Dispo:likely 1-2days, SNF diet:mechanical dysphagia, awaits s/s eval dvt ppx:systemic AC DNR/DNI Exam Vital Signs (Last) Date Time Temp Pulse Resp B/P Pulse Ox O2 Delivery O2 Flow Rate FiO2 10/04/16 10:36 Nasal Cannula 10/04/16 10:21 62 10/04/16 05:20 36.9 16 171/75 96 1.00 Test 09/28/16 13:00 09/28/16 19:39 10/01/16 06:30 10/03/16 05:45 Hold Purple Top Tube Received (Received) Activated Partial Thromboplast Time 32.1sec (22.8-33.0) Hold Blue Top Tube Received (Received) Hold Red Top Tube Received (Received) Hold [place] Top Tube Received (Received) Urinalysis Comment None Sodium Level 142mEq/L (134-144) Potassium Level 4.8mEq/L (3.5-5.2) Chloride Level 102mEq/L (97-108) Carbon Dioxide Level 26mmol/L (18-29) Blood Urea Nitrogen 34mg/dL (8-27) Creatinine 1.48mg/dL (0.57-1.00) Estimat Glomerular Filtration Rate 48mL/min (>59) Glucose Level 95mg/dL (60-99) Calcium Level 8.6mg/dL (8.5-10.1) Phosphorus Level 3.6mg/dL (2.5-4.9) Magnesium Level 1.9mg/dL (1.6-2.6) Total Bilirubin 1.2mg/dL (0.0-1.2) Aspartate Amino Transf (AST/SGOT) 27U/L (0-50) Alanine Aminotransferase (ALT/SGPT) 10U/L (0-32) Alkaline Phosphatase 45U/L (25-165) Total Protein 6.1g/dL (6.4-8.4) Albumin 3.3g/dL (3.4-5.0) Urine Color Yellow (YELLOW) Urine Appearance Clear (CLEAR,HAZY) Urine pH 7.0 (5.0-8.0) Urine Specific [place] 1.012 (1.003-1.035) Urine Protein Negativemg/dL (NEG,TRACE) Urine Glucose (UA) Negativemg/dL (NEGATIVE) Urine Ketones Negativemg/dL (NEGATIVE) Urine Occult Blood Trace (NEGATIVE) Urine Nitrite Negative (NEGATIVE) Urine Bilirubin Negative (NEGATIVE) Urine Urobilinogen Normalmg/dL (NORMAL) Urine Leukocyte Esterase Negative (NEGATIVE) Urine RBC 0-2/hpf (0-2) Urine WBC 0-5/hpf (0-5) Urine Epithelial Cells Occasional/hpf (NONE-MOD) Urine Crystals None seen (NONE SEEN) Urine Bacteria None/hpf (NONE-FEW) Urine Hyaline Casts None/lpf (NONE) Urine Granular Casts None seen (NONE SEEN) Urine Waxy Casts None seen (NONE SEEN) Urine Red Blood Cell Casts None seen (NONE SEEN) Urine White Blood Cell Casts None seen (NONE SEEN) Urine Mucus None seen (None Seen) Urine Trichomonas None seen (NONE SEEN) Urine Yeast None (NONE SEEN) Urine Culture Reflexed Not indicated Test 10/04/16 05:35 White Blood Count 6.1th/mm3 (3.8-10.1) Red Blood Count 3.21mil/mm3 (3.90-5.20) Hemoglobin 9.7g/dL (12.0-15.6) Hematocrit 30.4% (35.0-46.0) Mean Corpuscular Volume 94.7fL (81-100) Mean Corpuscular Hemoglobin 30.2pg (27.0-35.0) Mean Corpuscular Hemoglobin Concent 31.9% (32.0-37.0) Red Cell Distribution Width 14.2% (12.3-15.4) Platelet Count 136bil/L (150-400) Neutrophils (%) (Auto) 63.0% (40-74) Lymphocytes (%) (Auto) 17.4% (14-46) Monocytes (%) (Auto) 16.3% (4-12) Eosinophils (%) (Auto) 2.8% (0-5) Basophils (%) (Auto) 0.2% (0-3) Prothrombin Time 23.4sec (8.1-12.5) Prothromb Time International Ratio 2.15ratio Discharge Medications Discharge Medications Cran/Vitc/Mannose/Fos/Bromeln (Cystex Cranberry Liquid) 1,937 Mg/15 Ml Liquid 15 ML PO QAM (Reported) Cyanocobalamin (Cyanocobalamin Injection) 1,000 Mcg/1 Ml Vial 1,000 MCG IM Monthly (Reported) Denosumab (Prolia) 60 Mg/1 Ml Syringe 60 MG SQ YEARLY (Reported) Ipratropium [place] (Ipratropium [place] 0.06% Nasal) 15 Ml [place] 1 SPRAY NS QAM (Reported) Lactobacillus Acidophilus (Acidophilus Lactobacillus) 1 Each Capsule 2 EACH PO BIDWM (Reported) Magnesium Hydroxide (Milk of Magnesia) 400 Mg/5 Ml Oral.susp 30 ML PO Q48H ( Reported) Metoprolol Tartrate (Metoprolol Tartrate) 100 Mg Tablet 100 MG PO BID (Reported ) Sennosides (Senna) 8.6 Mg Tablet 34.4 MG PO Q48H (Reported) Tolterodine Tartrate ER (Tolterodine Tartrate ER) 2 Mg Capsule 2 MG PO QAM ( Reported) Torsemide (Torsemide) 10 Mg Tablet 10 MG PO DAILY Prescribed by: VAMSHI S OKELLEY, DO Warfarin Sodium (Warfarin Sodium) 5 Mg Tablet 5 MG PO DAILY EXCEPT ( Reported) 2.5 MG MONDAY, 5 MG ALL OTHER DAYS Warfarin Sodium (Warfarin Sodium) 5 Mg Tablet 2.5 MG PO THURSDAYS (Reported) 2.5 MG MONDAY, 5 MG ALL OTHER DAYS As needed Albuterol HFA (Proair HFA) 8.5 Gm Hfa.aer.ad 2 PUFFS INHALATION Q4H PRN PRN For Shortness of Breath (Reported) Dextran 70/Hypromellose/Pf (Artificial Tears Drops) 1 Each Droperette 2 DROP BOTH_EYES Q2H PRN PRN DRY EYES (Reported) Hydrocodone-Acetaminophen 5-325 mg (Hydrocodone-Acetaminophen 5-325 mg) 1 Each Tablet 1 TABLET PO Q4H PRN PRN For Pain Prescribed by: MD Fidelia SINGH Phos,M-B/Fidelia Phos,Di-Ba (Fleet Enema) 133 Ml Enema 133 ML RC DAILY PRN PRN For Constipation Prescribed by: FRED MELENDEZ MD Naproxen (Naproxen) 250 Mg Tablet 250 MG PO BID PRN PRN For Pain (Reported) Omeprazole (Omeprazole) 20 Mg Capsule.dr 20 MG PO DAILY PRN PRN For Dyspepsia or Heartburn (Reported) Polyethylene Glycol 3350 (Miralax) 17 Gm Powd.pack 17 GM PO DAILY PRN PRN For Constipation Prescribed by: FRED MELENDEZ MD Followup Plan Discharge Diet: Low fat, Low Sodium, Heart Healthy Discharge Activity: Limited until seen by PCP Patient Instructions The doctor will see you at the detention facility. Time spent 40 minutes time spent discharging patient today so far. copies to: Olayinka Sewell D Geoffrey MD Oct 04, 2016 12:26
--- NOTE | 2016-10-04 12:45 | NUR ---
Called and spoke with Lizzette Moulton audio visual collections coordinator at [facility] and she is arranging transport for 1400. Faxed orders and placed copy in chart. Updated [employer] and RN
--- NOTE | 2016-10-04 13:14 | NUR ---
Social Work-discharge: Data:EMR Reviewed. Pt is on day 6 of hospitalization for hip contusion per H&P. Pt is medically stable for discharge. PT continues to recommend SNF.UR specialist faxed discharge information and arranged transport for 1400. SW updated pt and friend Janine at bedside, both agreeable. SW placed a call to Felice Hahn [phone] and left him a message informing him of discharge. RN,UC,pt/family, and [place]a [place] all updated and agreeable to plan. Assessment:Pt to benefit from SNF. Plan:Pt to discharge to [facility] today at 1400. RN,UC,pt/family, and Nicolasa [place] all updated and agreeable to plan. CYNDEE Atkinson
--- NOTE | 2016-10-04 13:14 | NUR ---
Belongings Pt belongings removed from safe, pt verified and signed for them. Pt sent valuables home w/ friend james mcgraw.
[2016-10-04 13:33] VITALS: BP 123/63; PULSE 60; RESP 18; O2SAT 99
--- NOTE | 2016-10-04 15:01 | NUR ---
Discharge Pt left for [facility] at 1500 via . IV was d/c, brief changed, vss, pt pain well controlled before d/c. Pt clothing and other belongings transported w/ pt. Addendum: 10/04/16 at 1529 by GAEL HORAN RN Report had been called in advance to [facility].
== END 2016-10-04 15:00 | DRG 914 ==
LOC: SED 12:03 → OBSVTOIN 17:39 → MOC 17:39
PROVIDERS: ADMIT Internal Medicine; ATTEND Internal Medicine
DX: S79.912A Unspecified injury of left hip, initial encounter (principal); I47.1 Supraventricular tachycardia; R26.9 Unspecified abnormalities of gait and mobility; R42 Dizziness and giddiness; I48.2 Chronic atrial fibrillation; I27.2 Other secondary pulmonary hypertension; I12.9 Hypertensive chronic kidney disease with stage 1 through stage 4 chronic kidney disease, or unspecified chronic kidney disease; N18.3 Chronic kidney disease, stage 3 (moderate); D69.6 Thrombocytopenia, unspecified; E78.5 Hyperlipidemia, unspecified; R32 Unspecified urinary incontinence; K57.30 Diverticulosis of large intestine without perforation or abscess without bleeding; J44.9 Chronic obstructive pulmonary disease, unspecified; M48.54XD Collapsed vertebra, not elsewhere classified, thoracic region, subsequent encounter for fracture with routine healing; Z66 Do not resuscitate; I34.0 Nonrheumatic mitral (valve) insufficiency; R41.0 Disorientation, unspecified; W22.03XA Walked into furniture, initial encounter; Z95.0 Presence of cardiac pacemaker; Z79.01 Long term (current) use of anticoagulants; Z79.51 Long term (current) use of inhaled steroids; Y92.008 Other place in unspecified non-institutional (private) residence as the place of occurrence of the external cause